=== PATIENT | female | born 1940 | race Caucasian/White ===

== ENCOUNTER 2022-10-14 20:31 | Emergency (ER) | payer MEDICARE, SELFPAY ==
[2022-10-14 20:36] VITALS: BP 146/79; PULSE 59; RESP 18; TEMP 36.7; O2SAT 92; BMI 58.5
--- NOTE | 2022-10-14 21:08 | ED_ITS ---
HPI - General Adult General Chief complaint: Lower Extremity Swelling Stated complaint: chest pain Time Seen by Provider: 10/14/22 20:55 History of Present Illness HPI narrative: Pt points to her sternum and states she has chest pain in between her boobs that won' t go away. She feels it is due to her lymphedema and her legs are more swollen than normal. With concern of mid sternal chest pain beginning now about 21 hours ago around midnight last night. Has not really changed much. Does hurt to have bent forward 82-year-old woman presenting to the emergency department presenting to the emergency department with about 21 hours now chest pain beginning last night around midnight. Has not changed much. She is not really more short of breath. She was worried that maybe she is retaining some fluid as her legs also have gotten more full. Does have chronic lymphedema. Stockings have not been particularly helpful is also use compression boots. Most the treatments just rolled down even above the knee. Her chest discomfort is described as a pressure. Also worse when she pushes on it. Known strain or injury. Daughter notes that it is worse also when she raises arms over her head. Related Data Allergies Allergy/AdvReac Type Severity Reaction Status Date / Time No Known Drug Allergies Allergy Verified 10/14/22 20:39 Review of Systems Status of ROS: Reports: 6 or more systems reviewed and unremarkable except as noted in History and below Exam Narrative: Exam Narrative: Pleasant. Nasopharyngeal congestion. Skin is warm and dry. There is marked combination dependent and pitting edema in the lower legs. A patch of faint erythema and mild calor at the left middle lower leg but not really cellulitic. Not tender here. Lungs diminished breath sounds. Some of it might be due to body habitus. The heart is also distant and appears to be in a regular rhythm. Breathing restricted a little bit I think by chest wall discomfort. Palpation of the chest itself does reveal some reproducible tenderness in the mid sternum. She does say that she has not been worrying this area Const: Vital Signs, click to edit/add: Vital Signs - 24 hr 10/14/22 20:36 Temperature 98.0 F Pulse Rate [Right Pulse Oximeter] 59 L Respiratory Rate 18 Blood Pressure [Ri ght Upper Arm] 146/79 H Pulse Oximetry 92 Oxygen Delivery Me thod Room Air Documenting provider has reviewed patient's vital signs: yes Course Vital Signs Vital signs: Initial Vital Signs Temperature 98.0 F 10/14/22 20:36 Temperature Source Temporal Artery Scan 10/14/22 20:36 Pulse Rate 59 L 10/14/22 20:36 Pulse Rhythm Regular 10/14/22 20:36 Pulse Strength 3+ Normal 10/14/22 20:36 Respiratory Rate 18 10/14/22 20:36 Blood Pressure 146/79 H 10/14/22 20:36 Blood Pressure Mean 101 10/14/22 20:36 Blood Pressure Position Sitting 10/14/22 20:36 Pulse Oximetry 92 10/14/22 20:36 Oxygen Delivery Method Room Air 10/14/22 20:36 Vital Signs Temperature 98.0 F 10/14/22 20:36 Pulse Rate 59 L 10/14/22 20:36 Respiratory Rate 18 10/14/22 20:36 Blood Pressure 146/79 H 10/14/22 20:36 Pulse Oximetry 92 10/14/22 20:36 Oxygen Delivery Method Room Air 10/14/22 20:36 Temperature 98.0 F 10/14/22 20:36 Pulse Rate 59 L 10/14/22 20:36 Respiratory Rate 18 10/14/22 20:36 Blood Pressure 146/79 H 10/14/22 20:36 Pulse Oximetry 92 10/14/22 20:36 Oxygen Delivery Method Room Air 10/14/22 20:36 Medical Decision Making MDM Narrative Medical decision making narrative: Offered evaluation for chest pain. This is not really seem to be cardiac in origin. Does have some component of chest wall pain. She is relieved about my initial opinion and debating whether not she would like workup. Ultimately decides to proceed with this evaluation. Look for pulmonary embolus. Chest x- ray indication of increasing pulmonary edema given her history. Evaluate for ischemic episode. I have reviewed the EKG looks to be normal sinus rate of 60 without ischemic changes. Chest x-ray reviewed by me seems to show some cardiomegaly but clear space without pneumo thorax or pneumomediastinum. The formal over-read was still pending time of patient departure. She was feeling reasonably well and anxious to leave. Labs are reassuring. See patient discharge plan Lab Data Lab results reviewed: Yes I reviewed the patient's lab results Labs: Lab Results 10/14/22 Range/Units 21:30 WBC 7.31 (4.50-11.00) K/uL RBC 4.53 (4.00-5.20) m/uL Hgb 13.2 (12.0-16.0) gm/dL Hct 40.9 (33.0-51.0) % MCV 90 (80-100) fL MCH 29 (26-34) pg MCHC 32 (32-36) gm/dL RDW Coeff of Yakelin 13.1 (11.5-15.5) % Plt Count 168 (140-440) K/uL Neut % (Auto) 76.6 H (42.0-72.0) % Lymph % (Auto) 13.7 L (20-44) % [place] % (Auto) 6.6 (0.0-11.0) % Eos % (Auto) 2.6 (0.0-7.0) % Baso % (Auto) 0.4 (0.0-3.0) % Neut # (Auto) 5.60 (1.7-7.0) K/uL Lymph # (Auto) 1.00 (0.90-2.90) K/uL [place] # (Auto) 0.50 (0.00-0.90) K/UL Eos # (Auto) 0.19 (0.00-0.50) K/uL Baso # (Auto) 0.03 (0.00-0.30) K/uL D-Dimer Quant (PE/DVT) 0.54 H (0.00-0.50) ug/ml Sodium 139 (135-149) mmol/L Potassium 4.1 (3.6-5.1) mmol/L Chloride 100 (96-114) mmol/L Carbon Dioxide 33 H (20-32) mmol/L BUN 16 (7-30) mg/dL Creatinine 0.6 (0.5-1.5) mg/dL Estimated Creat Clear 34.90 Estimated GFR 90 ml/min Glucose 94 (60-115) mg/dL Calcium 9.4 (8.4-10.6) mg/dL Total Bilirubin 0.5 (0.1-1.5) mg/dL Direct Bilirubin 0.1 (0.0-0.5) mg/dL AST 21 (12-35) U/L ALT 15 (4-35) U/L Alkaline Phosphatase 59 (40-150) U/L Troponin I < 0.01 L (0.01-0.04) ng/mL C-Reactive Protein < 0.5 L (0.5-1.0) mg/dL NT-Pro-B Natriuret Pep 59 pg/mL Total Protein 7.3 (6.0-8.3) g/dL Albumin 4.3 (3.3-5.0) g/dL Discharge Plan Discharge Clinical Impression: Chest wall pain, Atypical chest pain Patient Disposition: Home w/ Parent or Adult Condition: Improved Additional Instructions: Might apply ice packs to the area that hurts. Stretch. Acetaminophen and ibuprofen. Follow Up/Referrals: Provider,Not a Local [Primary Care Provider] - Stand Alone Forms: [employer] Info Instructions
--- NOTE | 2022-10-14 21:20 | CRLHL7_ITS ---
For Patients: As a result of the Century Cures Act, medical imaging exams and procedure reports are released immediately into your electronic medical record. You may view this report before your referring provider. If you have questions, please contact your health care provider. INDICATION: Midsternal chest pain TECHNIQUE: Chest 2 views. Permanently recorded images are archived. COMPARISON: None. FINDINGS: Cardiovascular and mediastinum: Prominence of the left paraspinal stripe inferiorly. Mild cardiomegaly. Atherosclerotic thoracic aorta. Lungs and pleural spaces: No focal consolidation. Thin bandlike opacities in the lung bases likely represent scarring versus atelectasis. No pleural effusion or pneumothorax. Bones and soft tissues: Unremarkable for age. IMPRESSION: No evidence of an acute pulmonary process. Atelectasis versus scarring in the lung bases. Prominent left paraspinal stripe inferiorly. This could represent an uncoiled thoracic aorta; however, a hiatal hernia or paraspinal/retroperitoneal mass cannot be excluded in the absence of comparison studies. This can be further evaluated with a chest CT, if clinical concern persists Dictated by Parveen Cabezas MD @ 10/14/2022 11:21:03 PM (Electronically Signed)
[2022-10-14 21:47] LABS: Basophils Absolute Auto 0.03 K/uL (0.00-0.30); Basophils Percent Auto 0.4 % (0.0-3.0); Eosinophils Absolute Auto 0.19 K/uL (0.00-0.50); Eosinophils Percent Auto 2.6 % (0.0-7.0); Hematocrit 40.9 % (33.0-51.0); Hemoglobin* 13.2 gm/dL (12.0-16.0); Immature Granulocytes Abs Auto 0.01 K/uL (0.00-0.30); Immature Granulocytes Pct Auto 0.1 %; Lymphocytes Percent Auto 13.7 % (20-44); Mean Corpuscular HGB Conc 32 gm/dL (32-36); Mean Corpuscular Hemoglobin 29 pg (26-34); Mean Corpuscular Volume 90 fL (80-100); Monocytes Percent Auto 6.6 % (0.0-11.0); Neutrophils Percent Auto 76.6 % (42.0-72.0); Platelet Count* 168 K/uL (140-440); RDW Coefficient of Variation % 13.1 % (11.5-15.5); Red Blood Count 4.53 m/uL (4.00-5.20); White Blood Count* 7.31 K/uL (4.50-11.00)
[2022-10-14 21:48] LABS: Slide Review Reflex No
[2022-10-14 22:48] LABS: Albumin* 4.3 g/dL (3.3-5.0); Chloride* 100 mmol/L (96-114); Sodium* 139 mmol/L (135-149)
[2022-10-14 22:49] LABS: Potassium* 4.1 mmol/L (3.6-5.1)
[2022-10-14 22:51] LABS: Creatinine* 0.6 mg/dL (0.5-1.5); Estimated Glomerular Filt Rate 90 ml/min
[2022-10-14 22:52] LABS: Alanine Aminotransferase* 15 U/L (4-35); Alkaline Phosphatase* 59 U/L (40-150); Aspartate Amino Transferase* 21 U/L (12-35); Bilirubin Direct* 0.1 mg/dL (0.0-0.5); Bilirubin Total* 0.5 mg/dL (0.1-1.5); Blood Urea Nitrogen* 16 mg/dL (7-30); Calcium* 9.4 mg/dL (8.4-10.6); Carbon Dioxide* 33 mmol/L (20-32); Glucose* 94 mg/dL (60-115); Total Protein* 7.3 g/dL (6.0-8.3)
[2022-10-14 22:58] LABS: D Dimer Quantitative* 0.54 ug/ml (0.00-0.50)
[2022-10-14 22:59] LABS: C Reactive Protein* < 0.5 mg/dL (0.5-1.0)
[2022-10-14 23:13] LABS: Troponin I* < 0.01 ng/mL (0.01-0.04)
[2022-10-14 23:23] LABS: NT Pro B Type NatriureticPept* 59 pg/mL
== END 2022-10-14 23:28 | disposition home or self-care (01) ==
PROVIDERS: Emergency Provider Family Medicine
DX: R07.89 Other chest pain (principal)
CPT/HCPCS: 36415; 71046; 80048; 80076; 83880; 84484; 85025; 85379; 86140; 99284

== ENCOUNTER 2024-10-20 16:35 | Observation (INO) | payer MEDICARE, SELFPAY ==
--- OUTSIDE RECORDS SUMMARY | 2020-10-14 19:00 | XMS_ITS | Continuity of Care Document ---
Author Organization [facility] Address [address] [place] [address] Phone Care Team Providers Care Team Coordinator Name Role Phone [facility] Unavailable Unavailable Procedures Procedure Date IMPLANT NEUROELECTRODES IMPLANT NEUROELECTRODES Advance Directives Directive Yes / No Effective Date File Name No Information Encounters Encounter Description Practice Location Reason(s) For Visit Diagnoses Date Provider Providers Copied on Encounter [facility], [address], [place], [place], [id number], [place] tel:[phone] [facility] No Information [facility]. [address], [place], [place], [id number], [place]. tel:[phone] Referring Provider: Analilia Moss, [address], [place], [address] . tel:[phone] Family History Family Member Type Diagnosis Age At Onset No Information Payers Payer name Insurance type Covered democrat ID Authoriza ticynthia(s) [facility] Room[employer] CI [id number] Social History Type Description Quantity Date Captured Comments Sex Female Smoking Status No Information Chief Complaint And Reason For Visit No Information Reason For Referral Reason For Referral No Information History Of Present Illness Encounter Date Complaint History Of Prese nt Illness No Information Functional Status Date Functional Assessmen t No Information Instructions Date Instruction Additional Infor mation No Information Assessments Type Assessment Date No Information Patient Care Teams Name Effective Dates (start - stop) Status Members No Information
--- OUTSIDE RECORDS SUMMARY | 2020-10-14 19:00 | XMS_ITS | Continuity of Care Document ---
Author Organization [facility] Ambulatory [facility] Address [address] [place] [address] Phone Care Team Providers Care Banker Mason Name Role Phone [facility] Unavailable Unavailable Procedures Procedure Date IMPLANT NEUROELECTRODES IMPLANT NEUROELECTRODES Advance Directives Directive Yes / No Effective Date File Name No Information Encounters Encounter Description Practice Location Reason(s) For Visit Diagnoses Date Provider Providers Copied on Encounter [facility], [address], [place], [place], [id number], [place] tel:[phone] [facility] No Information [facility]. [address], [place], [place], [id number], [place]. tel:[phone] Referring Provider: Analilia Moss, [address], [place], [address] . tel:[phone] Family History Family Member Type Diagnosis Age At Onset No Information Payers Payer name Insurance type Covered libertarian ID Authoriza ticynthia(s) [facility] [employer] CI [id number] Social History Type Description Quantity Date Captured [...]
--- OUTSIDE RECORDS SUMMARY | 2022-02-15 09:51 | XMS_ITS | Continuity of Care Document ---
Author Organization [facility] Address [address] [place] [address] Phone Care Team Providers Care Wrapping Checker Name Role Phone Analilia Moss MD Unavailable Unavailable Allergies, Adverse Reactions, Alerts Substance Reaction Status Criticality latex Active No Information Medications Medication Instructions Dosage Effective Dates (start - stop) Status Comments Macrobid 100 mg capsule take 1 capsule by oral route every 12 hours with food 100 MG - Active Myrbetriq 50 mg tablet,extended release take 1 tablet by oral route every day swallowing whole with water. Do not crush, chew and/or divide. 50 MG - Active multivitamin tablet take 1 tablet by oral route every day 1 tablet - Active TOLTERODINE TARTRATE 2MG TABS TAKE ONE TABLET BY MOUTH TWICE A DAY FOR OVERACTIVE BLADDER - Active rosuvastatin 10 mg tablet take 1 tablet by oral route every day 10 MG - Active oxybutynin chloride ER 10 mg tablet,extended release 24 hr take 1 tablet by oral route every day 10 MG - Active metoprolol succinate ER 50 mg tablet,extended release 24 hr take 1 tablet by oral route every day 50 MG - Active lutein 6 mg capsule - Active levothyroxine 75 mcg capsule take 1 capsule by oral route every day 75 MCG - Active fluorouracil 5 % topical cream apply by topical route 2 times every day a sufficient amount to cover the lesions in the affected area(s) 0.00 - Active ferrous sulfate 325 mg (65 mg iron) tablet,delayed release - Active cyclobenzaprine 10 mg tablet take 1 tablet by oral route 2 times every day 10 MG - Active codeine 10 mg-guaifenesin 100 mg/5 mL oral liquid take 10 milliliter by oral route every 4 hours as needed 10.00 milliliter - Active bupropion HCl XL 300 mg 24 hr tablet, extended release take 1 tablet by oral route every day 300 MG - Active aspirin 81 mg chewable tablet chew 1 tablet by oral route every day 81 MG - Active vitamin E 400 unit capsule take 1 capsule by oral route every day 1 capsule - Active Vitamin D3 50 mcg (2,000 unit) capsule - Active Calcium 500 500 mg calcium (1,250 mg) tablet take 1 tablet by oral route 2 times every day 1 tablet - Active Procedures Procedure Date POSTOP FOLLOW-UP VISIT IMPLANT NEUROELECTRODES INSRT/REDO PERPH N GENERATOR FLUOROSCOPE EXAMINATION ANALYZE NEUROSTIM, NO PROG POSTOP FOLLOW-UP VISIT POSTOP FOLLOW-UP VISIT IMPLANT NEUROELECTRODES bilateral OFFICE/OUTPATIENT VISIT, EST Advance Directives Directive Yes / No Effective Date File Name No Information Encounters Encounter Description Practice Location Reason(s) For Visit Diagnoses Date Provider Providers Copied on Encounter [facility], [address] , [place], [place], [id number], [place] tel:[phone] [facility] No Information 2 Thum Analilia Obando. [address] , [place], [place], [id number] , [place]. tel:[phone] [facility], [address] , [place], [place], [id number], [place] tel:[phone] [facility] Urologic concerns (chief complaint) Urge incontinenceOve ractive bladder 1 um Analilia Obando. [address] , [place], [place], [id number] , [place]. tel:[phone] Referring Provider: Analilia Obando um, [address] , [place], [address] . tel:[phone] [facility], [address], [place], [place], [id number], [place] tel:[phone] [facility] No Information 1 Analilia Obando. [address], [place], [place], [id number] , [place]. tel:[phone] Referring Provider: Analiliadidi Obando Thum, [address], [place], [address] . tel:[phone] [facility], [address], [place], [place], [id number], [place] [phone] [facility] No Information Analilia Obando. [address], [place], [place], [id number] , [place]. [phone] [facility], [address], [place], [place], [id number], [place] tel:[phone] [facility] Female urologic symptoms (chief complaint) Overactive bladderStress incontinence (female) (male)Urge incontinenceMix ed incontinence Analilia Obando. [address], [place], [place], [address] , [place]. [phone] Referring Provider: Analilia Topher Thum, [address], [place], [address] . tel:[phone] [facility], [address], [place], [place], [address], [place] tel:[phone] [facility] Overactive bladderMixed incontinence 1 Analilia Obando. [address], [place], [place], [id number] , [place]. tel:[phone] Referring Provider: Analilia Topher Thum, [address], [place], [address] . tel:[phone] OFFICE/OUTPA TIENT VISIT, EST [facility], [address], [place], [place], [id number], [place] tel:[phone] [facility] Urologic concerns (chief complaint) Overactive bladderUrge incontinenceStr ess incontinence (female) (male) 1 Isa Obando. [address], [place], [place], [id number] , [place]. tel:[phone] Referring Provider: Sang Colerishabh, [address], [place], [address] . tel:[phone] [facility], [address], [place], [place], [id number], [place] tel:[phone] [facility] No Information 1 Isa Obando. [address], [place], [place], [address] , [place]. tel:[phone] [facility], [address], [place], [place], [id number], [place] tel:[phone] [facility] No Information 1 Myriam Aguilar. [address], [place], [place], [address] , [place]. tel:[phone] Family History Family Member Type Diagnosis Age At Onset Daughter Problem stroke Brother Problem Heart problems Son Problem Stroke Father Problem Heart problems Mother Problem Heart -quad transplant Payers Payer name Insurance type Covered republican ID Authortae zabala(s) [facility] 7-[employer] bio CI [id number] Social History Type Description Quantity Date Captured Comments Alcohol Use Details Unknown Caffeine Use Details Unknown Tobacco Use Status No Information Smoking Status No Information Sex Female Chief Complaint And Reason For Visit No Information Reason For Referral Reason For Referral No Information History Of Present Illness Encounter Date Complaint History Of Prese nt Illness Urologic concerns Here for follo w up of OAB, CHERI, UUI s/p Insterstim 11/16/20. Has been on program 4 since surgery and working with [facility] reps to adjust settings. Prior to surgery was changing pads 6-7 times per day. Now changing 4-5 times per day. Feels like symptoms are worse overnight than previously. Limiting coffee to one per day. 30 oz water per day. Changed to program 6 at intensity 1.0. Denies pain or signs of infection. Incisions healing well. Female urologic symptoms Here fo r Interstim lead removal. Had a successful trial as defined by >50% improvement in her symptoms subjectively and on bladder diary reviewed today. Interested in proceeding with Interstim. Nocturia down to once nightly. Still leaks. Urologic concerns Here for evalu ation of UI. Wearing Depends with pad over and changing 6-7 times daily. Normally never makes it to the bathroom. Leakage without awareness. Gushes with transition from sitting to standing. Reports diminished bladder sensation. Denies DM or any other neurological condition. Has lymphedema. Denies lasix or diuretic. Is aware of timed voiding but has not been able to follow a schedule. Nocturia is variable, can be once nightly or hourly. Notices coffee irritates her bladder. Currently taking both oxybutynin and tolteradine and is unsure if they are helping. Also failed myrbetriq. Denies FI. Tried botox by outside provider and not sure if it worked. Drinks 2-3 bottles of water per day. 1 coffee. Tubal ligation and denies any other pelvic/abdominal surgeries. Denies XRT. V4 Functional Status Date Functional Assessmen t No Information Instructions Date Instruction Additional Infor hugh Changed her to progr am 6 at 1 mA. Plan for bladder diary. Related to Urge incontinence Plan for full stage Interstim. Likely Bulkamid post op. Related to Overactive bladder Discussed options fo r third line therapy for medication refractory overactive bladder.Offered intravesical Botox and discussed the risks of urinary retention requiring CIC or a temporary indwelling Gomez catheter, incomplete bladder emptying or urinary tract infection. Also offered Interstim with a PNE followed by surgical implant if test phase successful. Risks include surgical revision, device failure and the definitive need for battery replacement. Benefits to both treatment options would include improvement of OAB, without curing it.Plan for PNE then likely Bulkamid. Related to Overactive bladder We discussed the pos sible treatment options for stress incontinence, including pelvic floor physical therapy, incontinence pessary, impressa, bulking agent, fascial sling or mesh sling. I explained that the FDA warning was for prolapse mesh and not for incontinence mesh and that mesh slings remain the gold standard treatment of CHERI recommended by all of the major urologic professional organizations. We reviewed the complications including, but not limited to, urinary tract infection, mesh erosion, organ perforation, pain, damage to nearby organs, bleeding, and urinary retention requiring temporary Gomez placement, CIC, or potentially another surgery. She understands that in particular with retropubic slings, the development of urgency and even urge incontinence is common post operatively. She asked appropriate questions and these were all answered to her satisfaction. Related to Stress incontinence (female) (male) Assessments Type Assessment Date No Information Patient Care Teams Name Effective Dates (start - stop) Status Members No Information
--- OUTSIDE RECORDS SUMMARY | 2022-02-15 09:51 | XMS_ITS | Continuity of Care Document ---
Author Organization [facility] Address [address] [place] [address] [place] [address] Phone Care Team Providers Care Acquisitions Logistics Analyst Name Role Phone Analilia Moss MD Unavailable [...] [facility], [address] , [place], [place], [id number], [place] tel:[phone] [facility] No Information 2 Thum Analilia Obando. [address] , [place], [place], [id number] , [place]. tel:[phone] [facility], [address] , [place], [place], [id number], [place] tel:[phone] [facility] Urologic concerns (chief complaint) Urge incontinenceOve ractive bladder 1 um Analilia Obando. [address] , [place], [place], [id number] , [place]. tel:[phone] Referring Provider: Analilia Obando um, [address] , [place], [address] . tel:[phone] [facility], [address], [place], [place], [address], [place] tel:[phone] [facility] No Information 1 Analilia Oabndo. [address], [place], [place], [id number] , [place]. tel:[phone] Referring Provider: Analiliadidi Obando Thum, [address], [place], [address] . tel:[phone] [facility], [address], [place], [place], [id number], [place] [phone] [facility] No Information Analilia Obando. [address], [place], [place], [id number] , [place]. [phone] [facility], [address], [place], [place], [address], [place] tel:[phone] [facility] Female urologic symptoms (chief complaint) Overactive bladderStress incontinence (female) (male)Urge incontinenceMix ed incontinence Analilia Obando. [address], [place], [place], [address] , [place]. [phone] Referring Provider: Analilia Topher Thum, [address], [place], [address] . tel:[phone] [facility], [address], [place], [place], [address], [place] tel:[phone] [facility] Overactive bladderMixed incontinence 1 Analilia Obando. [address], [place], [place], [address] , [place]. tel:[phone] Referring Provider: Analilia Topher Thum, [address], [place], [address] . tel:[phone] OFFICE/OUTPA TIENT VISIT, EST [facility], [address], [place], [place], [id number], [place] tel:[phone] [facility] Urologic concerns (chief complaint) Overactive bladderUrge incontinenceStr ess incontinence (female) (male) 1 Isa Obando. [address], [place], [place], [address] , [place]. tel:[phone] Referring Provider: Sang Colerishabh, [address], [place], [address] . tel:[phone] [facility], [address], [place], [place], [address], [place] tel:[phone] [facility] No Information 1 Isa Obando. [address], [place], [place], [address] , [place]. tel:[phone] [facility], [address], [place], [place], [address], [place] tel:[phone] [facility] No Information 1 Myriam Aguilar. [address], [place], [place], [address] , [place]. tel:[phone] Family History Family Member Type Diagnosis Age At Onset Daughter Problem stroke Brother Problem Heart problems Son Problem Stroke Father Problem Heart problems Mother Problem Heart -quad transplant Payers Payer name Insurance type Covered republican ID Authortae zabala(s) [facility] [employer] CI [id number] Social History Type Description Quantity Date Captured [...] program 4 since surgery and working with [facility] reps to adjust settings. Prior to surgery [...]
[2024-10-20] VITALS (19 sets, daily range): BP systolic 131–140; BP diastolic 80–88; PULSE 97–112; RESP 12–26; TEMP 36.2–36.4; O2SAT 90–95; BMI 50.8
--- OUTSIDE RECORDS SUMMARY | 2024-10-20 16:54 | XMS_ITS | Data Portability ---
Author Organization [facility], [facility] Address [address] [place] [address] Care Team Providers Care Sanitation Worker Name Role Phone [facility] Primar Care Provider Assessment No assessment recorded. Plan of Treatment Reminders Order Date Submit Date Provider Last Modified By Organization Details Last Modified Time Details Appointments None recorded. Lab urinalysis, dipstick 2023 [facility], [address], [address], [place], [address], 14:20:32 urinalysis, microscopic 2023 [facility], [address], [address], [place], [address], 14:37:05 Referral patient navigator referral 2023 [email or web address] [id number] Not available 04:43:23 Procedures None recorded. Surgeries None recorded. Imaging None recorded. Medication Orders None recorded. Patient TargetsNo targets recorded. Patient Instructions Encounter Date Encounter Id Patient Instructions Last Modified By Organization Details Last Modified Time 02/18/2024 [id number] OAB has interstim placed in 2019? with Dr hood in [place]---changed pogram to 1 today, was on 7 and did not have her device charged. needs to see sonia/yun in 1 mo. -We have reviewed the overactive bladder care pathway and an annotated handout was provided and reviewed with the patient today. -We have discussed that the first line of therapy is to decrease bladder irritants and to decrease fluids prior to bedtime. limiting amounts of coffee, soda, citrus can help along with dietary changes. -We discussed options for Physical Therapy and biofeedback as well as use of medications. There are many medications that are approved for OAB a handout was given that delineates this and reviews all medications (anticholingerics-- risk for dry mouth/constipation most commonly, or a newer medications, Myrbetriq or Gemtesa). I have suggested looking into insurance coverage for medication, as some medications are not initially covered well under some plans. -We did review 3rd line options for their bladder (Posterior Tibial Nerve stimulation (PTNM), Sacral Neuromodulation (Interstim/Axonics) , BOTOX) and others. We discussed that at times an evaluation with urodynamics, a test to study the bladders function, may be required if the above fails as well as cystocopy. [email or web address] Not available 02/18/2024 14:32:13 09/17/2024 [id number] Test each progra m for at least 2 weeks, adjusting amplitude as needed. May remain on a program as long as it is effective. Return as needed for reprogramming. [email or web address] Not available 09/17/2024 15:34:32 Reviewed the use of the smart edi programmer, and provided handout. I also provided a handout on bladder irritants. [email or web address] Not available 09/17/2024 17:19:24 Reason for Referral Referring Physician: Sharita morse, Urology, Encounter Date: 02/18/2024 Results Created Date Observation Date Name Description Value Unit Range Abnormal Flag Note LastModifiedBy Organization Detail LastModifiedTime 02/18/2002/18/2024 UA WITHO UT MICRO - CS URISC AN blood - uriscan NEGATI VE negati ve Not Available [facility] [address], [place], [address], 02/18/2024 14:20:32 02/18/2002/18/2024 UA WITHO UT MICRO - CS URISC AN bilirubin - uriscan NEGATI VE mg/dL negati ve Not Available [facility] [address], [place], [address], 02/18/2024 14:20:32 02/18/2002/18/2024 UA WITHO UT MICRO - CS URISC AN urobilinogen - uriscan NORMAL mg/dL normal Not Available [facility] [address], [place], [address], 02/18/2024 14:20:32 02/18/2002/18/2024 UA WITHO UT MICRO - CS URISC AN ketones - uriscan NEGATI VE mg/dL negati ve Not Available [facility] [address] [place] [address] [address], [place], [address], 02/18/2024 14:20:32 02/18/2002/18/2024 UA WITHO UT MICRO - CS URISC AN protein - uriscan NEGATI VE mg/dL negati ve Not Available [facility] [address] [place] [address] [address], [place], [address], 02/18/2024 14:20:32 02/18/20 24 02/18/2024 UA WITHO UT MICRO - CS URISC AN nitrites - uriscan POSITI VE negati ve abnormal Not Available [facility] [address] [place] [address] [address], [place], [address], 02/18/2024 14:20:32 02/18/2002/18/2024 UA WITHO UT MICRO - CS URISC AN glucose - uriscan NEGATI VE mg/dL negati ve Not Available [facility] [address] [place] [address] [address], [place], [address], 02/18/2024 14:20:32 02/18/20 24 02/18/2024 UA WITHO UT MICRO - CS URISC AN pH - uriscan 8.00 5.00-9 .00 Not Available [facility] [address] [place] [address] [address], [place], [address], 02/18/2024 14:20:32 02/18/20 24 02/18/2024 UA WITHO UT MICRO - CS URISC AN sp. gravity - uriscan <=1.01 1.01-1 .03 Not Available [facility] [address], [place], [address], 02/18/2024 14:20:32 02/18/2002/18/2024 UA WITHO UT MICRO - CS URISC AN leukocytes - uriscan NEGATI VE negati ve Not Available [facility] [address], [place], [address], 02/18/2024 14:20:32 02/18/2002/18/2024 UA WITHO UT MICRO - CS URISC AN color - uriscan YELLOW lt. yellow ;yello w Not Available [facility] [address] [place] [address] [address], [place], [address], 02/18/2024 14:20:32 02/18/20 24 02/18/2024 UA WITHO UT MICRO - CS URISC AN clarity - uriscan CLEAR clear Not Available [facility] [address], [place], [address], 02/18/2024 14:20:32 02/18/2002/18/2024 UA WITHO UT MICRO - CS URISC AN total urine volume (mL) 20 /mL ----- ----- ----- ----- ----- ----- ----- ----- ----- ----- ----- ----- ----- ----- ---- *Plecristina jeffery note the follo wing minim um quant ities for addit ional urine testi ng: - Atypi cals: 3 mL - Cytol ogy: 20 mL - GC/CH : 2 mL - FISH: 30 mL - Atypi cals w/ GC/CH : 5 mL - Cytol ogy PLUS FISH: 50 mL - Urine Cultu re: 3 mL ----- ----- ----- ----- ----- ----- ----- ----- ----- ----- ----- ----- ----- ----- ---- This lab resul t is being provi ded to you and your provi roberto at the same time in compl iance with the u ry Cures Act. Your provi roberto may not have had time to revie w and make recom menda tions based on the resul t. Artis fernandez allow up to one week for provi roberto revie w. Not Available [facility] [address], [place], [address], 02/18/2024 14:20:32 02/18/2002/18/2024 UA MICRO SCOPI C U-WBC 5 - 10 [hpf] 0 - 2 abnormal Not Available [facility] [address], [place], [address], 02/18/2024 14:20:34 02/18/2002/18/2024 UA MICRO SCOPI C U-RBC 0 - 2 [hpf] 0 - 2 Not Available [facility] [address], [place], [address], 02/18/2024 14:20:34 02/18/2002/18/2024 UA MICRO SCOPI C bacteria MANY [hpf] none;r are abnormal Not Available [facility] [address], [place], [address], 02/18/2024 14:20:34 02/18/2002/18/2024 UA MICRO SCOPI C squamous epi SMALL /lpf negati ve,sma ll This lab resul t is being provi ded to you and your provi roberto at the same time in compl iance with the Centu ry Cures Act. Your provi roberto may not have had time to revie w and make recom menda tions based on the resul t. Pleas e allow up to one week for provi roberto revie w. Not Available [facility] [address], [place], [address], 02/18/2024 14:20:34 Result Notes None recorded. Procedures Surgical History Date Name Laterality Status Provider Name and Address Organization Details Recorded Time 09/18/19 Sacral Stimulator Reprogramming completed Sonia Parikh [facility] 09/17/2024 17:39:39 02/18/20 Sacral neuromodulation w/o reprogramming completed Sharita Hyman MD [address] [place] [address],[address], [address], [facility] 02/18/2024 14:32:43 02/18/20 Past Data Reviewed completed Sharita Hyman MD [address] [place] [address],[facility] [address], [address], [facility] 02/18/2024 08:47:26 02/18/20 24 In and Out Catheterization- female completed Sharita Hyman MD [address] [place] [address],[facility] [address], [address], [facility] 02/18/2024 14:31:36 Imaging Results None recorded. Procedure Notes None recorded. Medical Equipment None Reported. Allergies Allergen ID Allergen Name Allergen Category Reaction Reaction Severity Criticality Documentation Date Start Date Code Code System Note Provider Name and Address Organization Details Recorded Time 023935 adhesive tape environme nt,medica tion Not available Not available Not available 02/18/2024 [id number] Sapna combs, [facility] 14:00:54 Medications Name Sig Start Date Stop Date Status Note LastModified by Organization Details LastModified Time ipratropium 0.5 mg-albutero l 3 mg (2.5 mg base)/3 mL nebulizatio n soln INHALE 1 VIAL VIA NEBULIZER TWICE A DAY active Not Available Not Available No t Available ketoconazol e 2 % shampoo APPLY LATHER ONTO A DAMP SCALP, LEAVE ON FOR 5-10 MINS THEN RINSE WITH WATER 3 TIMES WEEKLY active Not Available Not Available No t Available metoprolol succinate ER 50 mg tablet,exte nded release 24 hr TAKE 1 TABLET BY MOUTH 1 TIME A DAY active Not Available Not Available No t Available Calcium Antacid 200 mg (as calcium carbonate 500 mg) chewable tablet CHEW AND SWALLOW 2 TABLETS (1000MG) BY MOUTH TWICE DAILY NEEDED active Not Available Not Available No t Available aspirin 81 mg tablet,nathan yed release TAKE 1 TABLET BY MOUTH DAILY WITH A MEAL active Not Available Not Available No t Available acetaminoph en 500 mg tablet TAKE 1 TAB BY MOUTH TWICE DAILY active Not Available Not Available No t Available levothyroxi ne 75 mcg tablet TAKE 1 TABLET BY MOUTH DAILY BEFORE BREAKFAST DX HYPOTHYRO IDISM active Not Available Not Available No t Available cephalexin 500 mg capsule TAKE 1 CAPSULE BY MOUTH THREE TIMES DAILY FOR 7 DAYS. 02/17 completed Not Available Not Available Not Available oseltamivir 75 mg capsule TAKE 1 CAP BY MOUTH TWICE A DAY FOR 5 DAYS active Not Available Not Available No t Available gabapentin 300 mg capsule TAKE 1 CAPSULE BY MOUTH AT BEDTIME active Not Available Not Available No t Available omeprazole 20 mg capsule,del ayed release TAKE 1 CAPSULE BY MOUTH EVERY DAY BEFORE A MEAL active Not Available Not Available No t Available hydroxyzine HCl 25 mg tablet TAKE 1 TABLET BY MOUTH EVERY 6 HOURS NEEDED FOR ITCHING active Not Available Not Available No t Available furosemide 20 mg tablet TAKE 1 TABLET BY MOUTH 1 TIME A DAY active Not Available Not Available No t Available hydrocortis one 2.5 % topical ointment APPLY TO AFFECTED AREAS ON BILATERAL ARMS, LEGS AND CHEST TWICE DAILY FOR 10 DAYS 02/17 completed Not Available Not Available Not Available doxycycline hyclate 100 mg tablet 02/17 completed Not Available Not Available Not Available Oyster Shell Calcium-500 500 mg (as carbonate 1,250 mg) tablet TAKE 2 TABLETS (1000MG) BY MOUTH DAILY active Not Available Not Available No t Available rosuvastati n 10 mg tablet TAKE 1 TAB BY MOUTH AT BEDTIME active Not Available Not Available No t Available lutein 20 mg capsule TAKE 1 SOFTGEL BY MOUTH DAILY active Not Available Not Available No t Available melatonin active Not Available Not Anali ilable Not Available budesonide- formoterol HFA 160 mcg-4.5 mcg/actuati on aerosol inhaler INHALE 2 PUFFS INTO THE LUNGS TWICE DAILY RINSE MOUTH AFTER USE DX COPD EXACERBAT ION active Not Available Not Available No t Available Symbicort active Not Available Not Anali ilable Not Available FeroSul 325 mg (65 mg iron) tablet TAKE 1 TABLET BY MOUTH TWICE DAILY WITH MEALS active Not Available Not Available No t Available Vitamin D3 50 mcg (2,000 unit) capsule TAKE 1 SOFTGEL BY MOUTH DAILY active Not Available Not Available No t Available lutein 20 mg tablet Take by oral route. active Not Available Not Available No t Available mirabegron ER 25 mg tablet,exte nded release 24 hr TAKE 1 TABLET BY MOUTH 1 TIME A DAY active Not Available Not Available No t Available Centrum Silver Women 8 mg iron-400 mcg-50 mcg tablet TAKE 1 TABLET BY MOUTH DAILY active Not Available Not Available No t Available Vitals Date Recorded Body height Body mass index (BMI) Body weight Provider Name and Address Organization Details Last Updated DateTime 09/17/2024 157.48 cm 51.9 kg/m2 509997.[address] [facility] 09/17/2024 14:54:04 Date Recorded Body height Body mass index (BMI) Body weight Provider Name and Address Organization Details Last Updated DateTime 02/18/2024 157.48 cm 47.6 kg/m2 897350.[email or web address] [facility] 02/18/2024 14:00:16 Social History Question Answer Notes LastModified by [employer] Details LastModified Time Tobacco Smoking Status Former Smoker Sonia Parikh [facility] 09/17/2024 15:01:56 Do You Have An Advance Directive? Yes [email or web address] Information not available 09/17/2024 What Is Your Level Of Caffeine Consumption? Occasional 3 Cups Coffee Daily, Occasionally Soda [email or web address] Information not available 09/17/2024 When Did You Quit Smoking? 1-5yearssince lastcigarette [email or web address] Information not available 09/17/2024 Do You Have A Medical Power Of Shift Commander? Yes Son Information not available 09/17/2024 What Was The Date Of Your Most Recent Tobacco Screening? 09/17/2024 [email or web address] Information not available 09/17/2024 Has Tobacco Cessation Counseling Been Provided? No Information not available 02/18/2024 Sex: Unknown Functional Status Question Answer Note LastModified by [employer] Details LastModified Time Do you use any illicit or recreational drugs? No Information not available 02/18/2024 Do you or have you ever used any other forms of tobacco or nicotine? No Information not available 02/18/2024 What is your level of alcohol consumption? Occasional 1-2 drinks 1 time per month [email or web address] Information not available 09/17/2024 Mental Status None recorded. Family History Nothing Reported. Medical History No medical history recorded. Gynecological HistoryNo gynecological history recorded. Obstetrics History GPAL:G 0 P 0 0 0 0 Immunizations Vaccine Type Date Status Note Provider Nam e and Address Organization Details Recorded Time Influenza, split virus, trivalent, preservative 4 completed Not Available [facility] 09/17/2024 14:36:54 Influenza, split virus, trivalent, preservative 5 completed Not Available [facility] 09/17/2024 14:36:54 Influenza, split virus, trivalent, preservative 6 completed Not Available [facility] 09/17/2024 14:36:54 Influenza, split virus, trivalent, preservative 7 completed Not Available [facility] 09/17/2024 14:36:54 Influenza, split virus, trivalent, PF 8 completed Not Available [facility] 09/17/2024 14:36:54 Influenza, split virus, trivalent, PF 9 completed Not Available [facility] 09/17/2024 14:36:54 Influenza, split virus, trivalent, PF 0 completed Not Available [facility] 09/17/2024 14:36:54 Influenza, high-dose, trivalent, PF 2 completed Not Available [facility] 09/17/2024 14:36:54 Influenza, high-dose, trivalent, PF 5 completed Not Available [facility] 09/17/2024 14:36:54 Pneumococcal conjugate PCV 13 6 completed Not Available [facility] 09/17/2024 14:36:54 Influenza, high-dose, trivalent, PF 6 completed Not Available [facility] 09/17/2024 14:36:54 Tdap 7 completed Not Available [facility] 09/17/2024 14:36:54 Influenza, split virus, quadrivalent, preservative 8 completed Not Available [facility] 09/17/2024 14:36:54 Influenza, split virus, quadrivalent, PF 0 completed Not Available [facility] 09/17/2024 14:36:54 Influenza, high-dose, quadrivalent, PF 0 completed Not Available [facility] 09/17/2024 14:36:54 COVID-19, mRNA, LNP-S, PF, 30 mcg/0.3 mL dose 1 completed Not Available [facility] 09/17/2024 14:36:54 COVID-19, mRNA, LNP-S, PF, 30 mcg/0.3 mL dose 1 completed Not Available [facility] 09/17/2024 14:36:54 COVID-19, mRNA, LNP-S, PF, 30 mcg/0.3 mL dose 1 completed Not Available [facility] 09/17/2024 14:36:54 Influenza, high-dose, quadrivalent, PF 1 completed Not Available [facility] 09/17/2024 14:36:54 Novel [id number], all formulations 0 completed Not Available [facility] 09/17/2024 14:36:54 Influenza, split virus, trivalent, preservative 3 completed Not Available [facility] 09/17/2024 14:36:54 Influenza, high-dose, trivalent, PF 4 completed Not Available [facility] 09/17/2024 14:36:54 Influenza, high-dose, trivalent, PF 9 completed Not Available [facility] 09/17/2024 14:36:54 pneumococcal polysaccharide PPV23 7 completed Not Available [facility] 09/17/2024 14:36:54 Td (adult), 5 Lf tetanus toxoid, preservative free, adsorbed 7 completed Not Available [facility] 09/17/2024 14:36:54 zoster live 3 completed Not Available [facility] 09/17/2024 14:36:54 COVID-19, mRNA, LNP-S, PF, 100 mcg/0.5mL dose or 50 mcg/0.25mL dose 2 completed Not Available [facility] 09/17/2024 14:36:54 Influenza, high-dose, quadrivalent, PF 2 completed Not Available [facility] 09/17/2024 14:36:54 COVID-19, mRNA, LNP-S, bivalent, PF, 30 mcg/0.3 mL dose 3 completed Not Available [facility] 09/17/2024 14:36:54 Influenza, adjuvanted, quadrivalent, PF 3 completed Not Available [facility] 09/17/2024 14:36:54 COVID-19, mRNA, LNP-S, PF, 50 mcg/0.5 mL 3 completed Not Available [facility] 09/17/2024 14:36:54 zoster recombinant 4 completed Not Available [facility] 09/17/2024 14:36:54 Influenza, adjuvanted, trivalent, PF 4 completed Not Available [facility] 09/17/2024 14:36:54 COVID-19, mRNA, LNP-S, PF, jarred-sucrose, 30 mcg/0.3 mL 4 completed Not Available [facility] 09/17/2024 14:36:54 zoster recombinant 4 completed Not Available [facility] 09/17/2024 14:36:54 RSV, bivalent, protein subunit RSVpreF, diluent reconstituted, 0.5 mL, PF 5 completed Not Available [facility] 09/17/2024 14:36:54 Past Encounters Encounter ID Performer Location Encounter Start Date Encounter Closed Date Diagnosis/Indication Diagnosis SNOMED-CT Code Diagnosis ICD10 Code Diagnosis Note [id number] Sharita Hyman MD [facility] [address] [address] 02/18/2024 13:49:17 02/18/2024 14:36:32 Overactive urinary bladder 973556736 N32.81 new Urge incon tinence of urine 01108237 N39.41 new [id number] Sharita Hyman MD [facility] [address] [place] [address] 09/17/2024 14:34:02 09/26/2024 16:19:34 Overactive urinary bladder 036373076 N32.81 new Health Concerns Section Related Observation LastModified by Organization Detai ls LastModified Time None Recorded Concern Status LastModified by Organization Details LastModified Time None Recorded Advance Directives Directive Y: Payers Insurance Date Sequence Insurance Name Policy Number Policy Mahajan Covered Member ID Mahajan Member ID Guarantor Name 09/26/2024 1 MEDICA - DUAL ELIGIBLE (MEDICARE REPLACEMENT/ ADVANTAGE - HMO) [id number] Tiffanie French [id number] Tiffanie Villaiper 02/18/2024 2 [place] Tiffanie French [id number] Tiffanie French Notes Date Note Type Note Provider Name and Address Organization Details Recorded Time 02/18/2024 text/html 83 yo F wit h hx of incontinence for over 4-5 yearsmorbid obesity, VASU, lymphedema, UUI HTN with hx of heart failure GERDhas uterus no vb or discharge Cr 0.68 8-17-24 DF q 1-2 hrsenuresis nocturia 1changes depends with a pad 5-6 times per day has InterStim, was placed in [facility], near [place], [place]. --->Dr Analilia Hood. it is not working well for her does not recall any meds prior to this Sharita Hyman MD [address] [place] [address],[address], [place], [address], [facility] 02/18/2024 14:34:24 09/17/2024 text/html Current program: 1, 2, 3, 4, 5, 6, 7 , A, B, C Current amplitude: ____ PVR: ____ cc. Patient complaints: Is the interstim turned on? Y/N Is the stimulus uncomfortable? Y/N Does the patient have UTI? Y/N Any changes to diet? Y/N Has the patient been constipated? Y/N Any chnages in meds? Y/N Any changes in other medical conditions? Y/N Recent fall, surgery, or procedures? Y/N Impedance checked Batery checked Amplitude limit changed Amp chnaged Program changed Pulse width changed Rate chaanged [facility] 17:42:14 OBGyn Episode No OBEpisode recorded.
--- OUTSIDE RECORDS SUMMARY | 2024-10-20 16:54 | XMS_ITS | Continuity of Care Document ---
Author Organization [facility], [facility] Address [address] [place] [address] Care Team Providers Care Internet Marketing Director Name Role Phone [facility] Primar y Care Provider Assessment No assessment recorded. Plan of Treatment Reminders Order Date Submit Date Provider Last Modified By Organization Details Last Modified Time Details Appointments None record ed. Lab None record ed. Referral None record ed. Procedures None record ed. Surgeries None record ed. Imaging None record ed. Medication Orders None record ed. Patient TargetsNo targets recorded. Patient Instructions Encounter Date Encounter Id Patient Instructions Last Modified By Organization Details Last Modified Time 09/17/2024 [id number] Test each progra m for at least 2 weeks, adjusting amplitude as needed. May remain on a program as long as it is effective. Return as needed for reprogramming. [email or web address] Not available 09/17/2024 15:34:32 Reviewed the use of the smart senior mainframe programmer analyst, and provided handout. I also provided a handout on bladder irritants. [email or web address] Not available 09/17/2024 17:19:24 Reason for Referral None Reported. Procedures Surgical History Date Name Laterality Status Provider Name and Address Organization Details Recorded Time 09/18/19 Sacral Stimulator Reprogramming completed Yesenia Parikh [facility] 09/17/2024 17:39:39 02/18/20 24 Sacral neuromodulation w/o reprogramming completed Sharita Hyman MD [address] [place] [address],[address] [place] [address], [phone], [facility] 02/18/2024 14:32:43 02/18/20 24 Past Data Reviewed completed Sharita Hyman MD [address] [place] [address],[address], [phone], [facility] 02/18/2024 08:47:26 02/18/20 24 In and Out Catheterization- female completed Sharita Hyman MD [address], [place], [address], [facility] 02/18/2024 14:31:36 Imaging Results None recorded. Procedure Notes None recorded. Medical Equipment None Reported. Allergies Allergen ID Allergen Name Allergen Category Reaction Reaction Severity Criticality Documentation Date Start Date Code Code System Note Provider Name and Address Organization Details Recorded Time 979645 adhesive tape environme nt,medica tion Not available Not available Not available 02/18/2024 [id number] UNK Sapna Moreno [facility], [facility] 14:00:54 Medications Name Sig Start Date [...] Updated DateTime 09/17/2024 157.48 cm 51.9 kg/m2 312017.23 g Yesenia Parikh [facility] 09/17/2024 14:54:04 Social History Question Answer Notes LastModified by Organizat ion Details LastModified Time Tobacco Smoking Status Former Smoker Yesenia Parikh [facility] 09/17/2024 15:01:56 Do You Have An Advance Directive? Yes [email or web address] Information not available 09/17/2024 What Is Your Level Of Caffeine Consumption? Occasional 3 Cups Coffee Daily, Occasionally Soda [email or web address] Information not available 09/17/2024 When Did You Quit Smoking? 1-5yearssince lastcigarette Information not available 09/17/2024 Do You Have A Medical Power Of Intelligence Officer Basic? Yes Son Information not available 09/17/2024 What Was The Date Of Your Most Recent Tobacco Screening? 09/17/2024 [email or web address] Information not available 09/17/2024 Has Tobacco Cessation Counseling Been Provided? No Information not available 02/18/2024 Sex: Unknown Functional Status Question Answer Note LastModified by [employer] Details LastModified Time Do you use any illicit or recreational drugs? No Information not available 02/18/2024 Do you or have you ever used any other forms of tobacco or nicotine? No Information not available 02/18/2024 What is your level of alcohol consumption? Occasional 1-2 drinks 1 time per month Information not available 09/17/2024 Mental Status None recorded. Family History Nothing Reported. Medical History No medical history recorded. Gynecological HistoryNo gynecological history recorded. Obstetrics History GPAL:G 0 P 0 0 0 0 Immunizations Vaccine Type Date Status Note Provider Nam e and Address Organization Details Recorded Time Influenza, split virus, trivalent, preservative 4 completed Not Available [facility] 09/17/2024 14:36:54 Influenza, split virus, trivalent, preservative 5 completed Not Available [facility] 09/17/2024 14:36:54 Influenza, split virus, trivalent, preservative 6 completed Not Available [facility] 09/17/2024 14:36:54 Influenza, split virus, trivalent, preservative 7 completed Not Available [facility] 09/17/2024 14:36:54 Influenza, split virus, trivalent, PF 8 completed Not Available [facility] 09/17/2024 14:36:54 Influenza, split virus, trivalent, PF 9 completed Not Available [facility] 09/17/2024 14:36:54 Influenza, split virus, trivalent, PF 0 completed Not Available [facility] 09/17/2024 14:36:54 Influenza, high-dose, trivalent, PF 2 completed Not Available [facility] 09/17/2024 14:36:54 Influenza, high-dose, trivalent, PF 5 completed Not Available [facility] 09/17/2024 14:36:54 Pneumococcal conjugate PCV 13 6 completed Not Available [facility] 09/17/2024 14:36:54 Influenza, high-dose, trivalent, PF 6 completed Not Available Counts include 234 beds at the [facility] 09/17/2024 14:36:54 Tdap 7 completed Not Available [facility] 09/17/2024 14:36:54 Influenza, split virus, quadrivalent, preservative 8 completed Not Available [facility] 09/17/2024 14:36:54 Influenza, split virus, quadrivalent, PF 0 completed Not Available [facility] 09/17/2024 14:36:54 Influenza, high-dose, quadrivalent, PF 0 completed Not Available [facility] 09/17/2024 14:36:54 COVID-19, mRNA, LNP-S, PF, 30 mcg/0.3 mL dose 1 completed Not Available [facility] 09/17/2024 14:36:54 COVID-19, mRNA, LNP-S, PF, 30 mcg/0.3 mL dose 1 completed Not Available [facility] 09/17/2024 14:36:54 COVID-19, mRNA, LNP-S, PF, 30 mcg/0.3 mL dose 1 completed Not Available [facility] 09/17/2024 14:36:54 Influenza, high-dose, quadrivalent, PF 1 completed Not Available [facility] 09/17/2024 14:36:54 Novel [id number], all formulations 0 completed Not Available [facility] 09/17/2024 14:36:54 Influenza, split virus, trivalent, preservative 3 completed Not Available [facility] 09/17/2024 14:36:54 Influenza, high-dose, trivalent, PF 4 completed Not Available [facility] 09/17/2024 14:36:54 Influenza, high-dose, trivalent, PF 9 completed Not Available [facility] 09/17/2024 14:36:54 pneumococcal polysaccharide PPV23 7 completed Not Available [facility] 09/17/2024 14:36:54 Td (adult), 5 Lf tetanus toxoid, preservative free, adsorbed 7 completed Not Available [facility] 09/17/2024 14:36:54 zoster live 3 completed Not Available [facility] 09/17/2024 14:36:54 COVID-19, mRNA, LNP-S, PF, 100 mcg/0.5mL dose or 50 mcg/0.25mL dose 2 completed Not Available [facility] 09/17/2024 14:36:54 Influenza, high-dose, quadrivalent, PF 2 completed Not Available [facility] 09/17/2024 14:36:54 COVID-19, mRNA, LNP-S, bivalent, PF, 30 mcg/0.3 mL dose 3 completed Not Available [facility] 09/17/2024 14:36:54 Influenza, adjuvanted, quadrivalent, PF 3 completed Not Available [facility] 09/17/2024 14:36:54 COVID-19, mRNA, LNP-S, PF, 50 mcg/0.5 mL 3 completed Not Available [facility] 09/17/2024 14:36:54 zoster recombinant 4 completed Not Available [facility] 09/17/2024 14:36:54 Influenza, adjuvanted, trivalent, PF 4 completed Not Available [facility] 09/17/2024 14:36:54 COVID-19, mRNA, LNP-S, PF, jarred-sucrose, 30 mcg/0.3 mL 4 completed Not Available Counts include 234 beds at the [facility] 09/17/2024 14:36:54 zoster recombinant 4 completed Not Available Counts include 234 beds at the [facility] 09/17/2024 14:36:54 RSV, bivalent, protein subunit RSVpreF, diluent reconstituted, 0.5 mL, PF 5 completed Not Available Counts include 234 beds at the [facility] 09/17/2024 14:36:54 Past Encounters Encounter ID Performer Location Encounter Start Date Encounter Closed Date Diagnosis/Indication Diagnosis SNOMED-CT Code Diagnosis ICD10 Code Diagnosis Note [id number] Sharita Hyman MD [facility] [address] [phone] 09/17/2024 14:34:02 09/26/2024 16:19:34 Overactive urinary bladder 733530411 N32.81 new Health Concerns Section Related Observation LastModified by Organization Detai ls LastModified Time None Recorded Concern Status LastModified by Organization Details LastModified Time None Recorded Payers Encounter Date Sequence Insurance Name Policy Number Policy Mahajan Covered Member ID Mahajan Member ID Guarantor Name 09/17/2024 1 MEDICA - DUAL ELIGIBLE (MEDICARE REPLACEMENT/ ADVANTAGE - HMO) [id number] Tiffanie French [id number] Tiffanie French Notes Date Note Type Note Provider Name and Address Organization Details Recorded Time 09/17/2024 text/html Current program: 1, 2, 3, [...] Pulse width changed Rate chaanged [facility] 09/17/2024 17:42:14 OBGyn Episode No OBEpisode recorded.
--- OUTSIDE RECORDS SUMMARY | 2024-10-20 16:54 | XMS_ITS | Clinical Summary ---
Author Organization [facility] Address [address] [place] [address] Care Team Providers Care Leak Operator Paraffin Plant Name Role Phone [facility] Primary Care Provider Unavailabl e Allergies Active Allergy Reactions Criticality Noted Date Comments Adhesive Tape-Silicones Rash 12/21/2021 Medications lutein 20 mg capsule Take 1 Capsule (20 mg) by mouth once daily. 0 2 Active cholecalciferol (Vitamin D-3) 2,000 unit capsule Take 1 Capsule (2,000 units) by mouth once daily. 0 2 Active bqsqmfmc-mve-rfxe -FA-lutein (Centrum Silver Women) 8 mg iron-400 mcg-300 mcg tab Take 1 Tablet by mouth once daily. 0 2 Active melatonin 3 mg tablet 3 mg at bedtime if needed for Sleep. as needed Active levothyroxine (SYNTHROID) 75 mcg tabletIndications :Hypothyroidism (acquired) Take 1 Tablet (75 mcg) by mouth before breakfast. 100 Tablet 3 3 Active aspirin (ECOTRIN) 81 mg enteric coated tabletIndications :Essential hypertension Take 1 Tablet (81 mg) by mouth once daily with a meal. 100 Tablet 3 3 Active ferrous sulfate, 65 mg elemental, tabletIndications :Iron deficiency anemia, unspecified iron deficiency anemia type Take 1 Tablet (325 mg) by mouth two times daily with meals. 180 Tablet 3 3 Active metoprolol succinate (TOPROL XL) 50 mg sustained-release tabletIndications :Essential hypertension Take 1 Tablet (50 mg) by mouth once daily. 90 Tablet 2 4 Active rosuvastatin (CRESTOR) 10 mg tabletIndications :Dyslipidemia Take 1 Tablet (10 mg) by mouth at bedtime. 100 Tablet 2 4 Active calcium carbonate (CALCIUM 500 ORAL) Take 1,000 mg by mouth once daily. Active furosemide (LASIX) 20 mg tablet Take 20 mg by mouth once daily in the morning. 4 Active hydrOXYzine HCL (ATARAX) 25 mg tablet Take 25 mg by mouth every 6 hours if needed. Active albuterol-ipratro pium (DUONEB) (2.5-0.5 mg) in 3 mL NEBULIZATION solution Inhale 1 Neb via a nebulizer two times daily. 4 Active mirabegron EXTENDED-release (MYRBETRIQ) 25 mg tablet Take 25 mg by mouth once daily. 4 Active triamcinolone (ARISTOCORT; KENALOG) 0.1 % creamIndications: Rash Apply thin layer to affected areas on body 1-2 times a day as needed. Do not use on face/neck/ears /underarms/john in. Do not use more than 3 weeks. 80 g 5 Active ketoconazole 2% shampoo (NIZORAL) 2 % shampooIndication s:Seborrheic dermatitis lather onto a damp scalp, leave on for 5-10 minutes, then rinse out well with water. Use three times per week during flares and weekly for maintenance. 120 mL 11 5 Active Active Problems Problem Noted Date Diagnosed Date Skin cancer 04/29/2024 Overview (06/16/2024): 04/24/24: Midline forehead, BCC. Mohs done 06/16/[address] Strauss Hypertensive heart disease with heart failure Overview (12/08/2023): Documented on 09/12/2021 Hypoxia 12/08/2023 GERD (gastroesophageal reflux disease) Urge urinary incontinence 07/19/2023 Obesity, morbid 12/21/2021 VASU (obstructive sleep apnea) 12/21/2021 Iron deficiency anemia 12/21/2021 Dyslipidemia 12/21/2021 Hypothyroidism (acquired) 12/21/2021 Lymphedema 12/21/2021 Resolved Problems Problem Noted Date Diagnosed Date Resolved Date Chronic obstructive pulmonar y disease, unspecified 12/08/2023 12/19/2023 Overview (12/08/2023): Documented on 07/22/2021 Hypoxic respiratory failure 12/08/2023 12/08/2023 Chronic bronchitis, unspecif ied chronic bronchitis type 01/11/2023 08/26/2023 Recurrent major depressive d isorder, in partial remission 12/21/2021 09/13/2023 Encounters Date Type Department Care Team Description 09/03/2024 [place] [facility] [place] [id number] [address] Yuridia Hairston DO Form (Physician order) from Last 3 Months Immunizations Immunization Administration Dates Next Due Influenza A (H1N1), Inactivated 05/21/2009 Influenza, High-dose Quadriv alent Inactivated 02/02/2022,02/10/2021,04/12/2020 Influenza, IIV3 (Age >=3 years) 01/23/20 13,02/19/2007,03/02/2006,2004,04/11/2004 Influenza, Inactivated AIIV4 (Age 65+ Years) Preserv Free 01/11/2023 Pneumococcal Poly,23-Valent (Pneumovax) 12/11/2006 Pneumococcal conj 13-Valent (Prevnar 13) 06/25/2015 Td, Preservative Free (age > = 7 Years) 12/11/2006 Tdap 08/14/2016 Zoster (Zostavax-ZVL, live) 02/10/2013 Family History Medical History Relation Name Comments Coronary artery disease Brother Multiple sclerosis Daughter Stroke Daughter Coronary artery disease Father Coronary artery disease Mother Multiple sclerosis Son Stroke Son Relation Name Status Comments Brother Daughter Alive Father Mother Son Alive Social History Tobacco Use Types Packs/Day Years Used Date Smoking Tobacco: Former Cigarettes S tarted: 08/29/2021 Passive Smoke Exposure: Never Smokeless Tobacco: Never Tobacco Cessation:Counseling Given: Not Answered Alcohol Use Standard Drinks/Week Comments Not Currently 0 (1 standard drink = 0.6 oz pur e alcohol) PHQ-2 Answer Date Recorded PHQ-2 TOTAL SCORE 0 01/11/2023 Interpersonal Safety Answer Date Record ed Are you being hit, kicked, p ushed or yelled at (see row info)? No 12/08/2023 Interpersonal Safety Abuse 12 - 18 Not on file 12/08/2023 Interpersonal Safety Ambulatory Vulnerability No t on file 12/08/2023 Comments No Sex and Gender Information Value Date Recorded Sex Assigned at Not on file Legal Sex Female 11:09 AM CDT Gender Identity Not on file Sexual Orientation Not on file Obstetrics History Para Term AB IAB SAB Ectopic Multiple Livin g Live Births 4 4 4 4 4 Date Outcome GA Total Labor Labor//3rd Weight Sex Type Anes PTL Lorin A1 A5 Name Clin 1962 Term M Vag Living 1965 Term F Vag Living 1977 Term M Vag Living 1978 Term M Vag Living Last Filed Vital Signs Vital Sign Reading Time Taken Comments Blood Pressure 156/77 12/08/2023 5:26 PM CDT Pulse 72 12/08/2023 5:26 PM CDT Temperature 36.6 C (97.9 F) 12/08/2023 5:26 PM CDT Respiratory Rate 16 12/08/2023 5:26 PM CDT Oxygen Saturation 91% 12/08/2023 5:26 PM CDT Inhaled Oxygen Concentration - - Weight 135.3 kg (298 lb 3.2 oz) 024 12:12 AM CDT Height 158.8 cm (5' 2.5) 12/08/2023 12 :12 AM CDT Body Mass Index 53.67 12/08/2023 12:12 AM CDT Plan of Treatment Health Maintenance Due Date Last Done Comments DEXA/DXA scan for age 65+ 2006 Zoster (shingles) series for age 50+ (2 of 3) 04/07/2013 02/10/2013 RSV vaccine for adults or (1 - 1-dose 75+ series) 2016 Medicare Wellness for age 65+ 12/22/2022 12/21/2021 COVID-19 vaccine series ( season) 2023 06/13/2022, 11/23/2021, 02/10/2021, Additional history exists Depression screening for age 12+ 01/16/2024 01/15/2023, 01/11/2023, 12/24/2021, Additional history exists BMI (ht and wt on same day) for age 18+ 09/12/2024 09/13/2023, 01/11/2023, 12/21/2021 Influenza Vaccine (Season Ended) 2024 01/11/2023, 01/22/2013, 02/19/2007, Additional history exists Tetanus booster 08/14/2026 08/14/2016, 12/11/2006 Pneumococcal series for age 50+ Completed 06/25/2015, 12/11/2006 Tdap Completed 08/14/2016 Hepatitis B series for 19+ Aged Out N o longer eligible based on patient's age to complete this topic Insurance [id number] [id number] [facility] MEDICA DUAL SOLUTIONS [facility] Advance Directives Documents on File Type Date Recorded Patient Retail Financial Analyst Expl anation Power of Corn Crop Supervisor 05/02/2005 CARLOS CHAPIN, POA, 05/02/2005 * Full Code (Latest Code Status on File) Date Activated Date Inactivated Comments 12/08/2023 10:38 AM 12/08/2023 9:30 PM Question Answer Comments Code Status Discussion: Reviewed Preferences Care Teams Leak Operator Paraffin Plant Relationship Specialty Start Date End Date Paris Carrasquillo PCP - General 12/21/21
--- OUTSIDE RECORDS SUMMARY | 2024-10-20 16:54 | XMS_ITS | Patient Health Record ---
Author Organization [facility] Address [address] [address] [place] [address] Support Name Relationship Address Phone SEFERINO CURTIS Guarantor Unknown [phone] Reason For Referral No Information Medications Medication SIG (Take, Route, Frequency, Duration) Notes Start Date End Date Status Metoprolol Tartrate (50 MG) DAILY *please review for potential update for e-prescription and drug interaction check* Active Fish Oil (1200 MG) DAILY *please revie w for potential update for e-prescription and drug interaction check* Active Aspirin (325 MG) DAILY *please review for potential update for e-prescription and drug interaction check* Active Vitamin E (400 UNIT) DAILY *please rev iew for potential update for e-prescription and drug interaction check* Active Vitamin D (2000 UNIT) DAILY *please re view for potential update for e-prescription and drug interaction check* Active Vitamin C (500 MG) DAILY *please revie w for potential update for e-prescription and drug interaction check* Active Iron (325 (65 Fe) MG) DAILY *please re view for potential update for e-prescription and drug interaction check* Active Levothyroxine Sodium (75 MCG) DAILY *please review for potential update for e-prescription and drug interaction check* Active Crestor (10 MG) DAILY *please review f or potential update for e-prescription and drug interaction check* Active Lutein (6 MG) DAILY *please review f or potential update for e-prescription and drug interaction check* Active Calcium (500 MG) BID *please review for potential update for e-prescription and drug interaction check* Active Multi Vitamin/Minerals (uncertain of dosage) DAILY *please review for potential update for e-prescription and drug interaction check* Active Problems Problem Type SNOMED Code ICD Code Onset Dates Problem Status W/U Status Risk Notes Problem Surgical follow-up (790747768) Aftercare following surgery of the musculoskeletal system, NEC (V58.78) 3 Active confirmed Problem S/P Hip joint replacement (use search on code to be specific) (V43.64) 4 Active confirmed Problem Disorder of shoulder region (222309077) Impingement Syndrome (726.2) 3 Active confirmed Problem Sprains and stra ins of shoulder and upper arm: Other specified sites of shoulder and upper arm (840.8) 3 Active confirmed Problem 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 (021757759) Other derangement of joint: Articular cartilage disorder shoulder region (718.01) 3 Active confirmed Problem Arthralgia of the pelvic region and thigh (567703740) Pain-Hip (719.45) 4 Active confirmed Plan Of Treatment No Information Insurance Providers Payer Name Payer Address Payer Phone Subscriber Number Group Number Insured Name Patient Relationship to Insured Coverage Start Date Coverage End Date MEDICA [address] [address] [place] [address] [phone] [id number] SEFERINO CURTIS Self - patient is the insured Medicare of [place] [address] [facility] [place] [address] [id number] SEFERINO CURTIS Self - patient is the insured [place] [employer] [address] [place] [place] [address] [phone] [id number] SEFERINO CURTIS Self - patient is the insured
--- NOTE | 2024-10-20 17:03 | ED.GENADULT ---
HPI - General Adult General Time Seen by Provider: 17:03 Date Seen: 10/20/24 Chief complaint: Edema Stated complaint: unspecified complaint Time Seen by Provider: 10/20/24 17:03 Source: patient, EMS and RN notes reviewed Mode of arrival: EMS Limitations: no limitations History of Present Illness HPI narrative: This 84-year-old female is brought in by [facility] from [facility] in [facility] for concern of edema not responding to Lasix. She notes that she does not nor medicines, she states her pills are given to her. The facility reported that she had her Lasix increased over the weekend to 80 mg daily, was back down to 40 mg today. She feels a little more short of breath than usual with activity. She reportedly had a chest x-ray a week ago with pneumonia, was repeated on the and still had pneumonia. She feels like her legs are swollen. She wears wraps on her lower extremities during the day, she states the left leg was more painful in the wrap today. She feels like her legs are more swollen. She denies any chest pain, no palpitations. She is not on any blood thinners reportedly. No fevers or chills, no cough. She states she wants to go home. She is noted to have chronic lymphedema. Related Data Home Medications ?Medication ?Instructions ?Recorded ?Confirmed amoxicillin 875 mg-potassium 1 tab PO BID 10/20/24 10/20/24 clavulanate 125 mg tablet aspirin 81 mg tablet,delayed 81 mg PO DAILY 10/20/24 10/20/24 release azithromycin 250 mg tablet mg PO 10/20/24 budesonide-formoterol HFA 160 2 puff inhalation BID 10/20/24 10/20/24 mcg-4.5 mcg/actuation aerosol inhaler calcium carbonate (Calcium Antacid) mg PO 10/20/24 calcium carbonate (Oyster Shell mg PO 10/20/24 Calcium 500) cholecalciferol (vitamin D3) 50 1 PO DAILY 10/20/24 mcg (2,000 unit) capsule (Vitamin D3) ferrous sulfate 325 mg (65 mg 325 mg PO BID 10/20/24 10/20/24 iron) tablet (FeroSul) furosemide 40 mg tablet 40 mg PO DAILY 10/20/24 10/20/24 hydroxyzine HCl 25 mg tablet 25 mg PO Q6H PRN itch 10/20/24 10/20/24 ipratropium 0.5 mg-albuterol 3 mg 1 inhalation 3XD 10/20/24 (2.5 mg base)/3 mL nebulization soln levothyroxine 75 mcg tablet 75 mcg PO QAM disorder of thyroid 10/20/24 10/20/24 gland lutein 20 mg capsule 1 PO DAILY 10/20/24 metoprolol succinate 50 mg 50 mg PO DAILY 10/20/24 10/20/24 tablet,extended release 24 hr mirabegron 25 mg tablet,extended 25 mg PO DAILY 10/20/24 10/20/24 release 24 hr mirabegron 50 mg tablet,extended 50 mg PO DAILY 10/20/24 10/20/24 release 24 hr [id number]-[id number]-sgme 8 mg-folic 400 1 tab PO DAILY 10/20/24 10/20/24 mcg-K 50 mcg-lutein 300 mcg tablet (Centrum Silver Women) omeprazole 20 mg capsule,delayed 20 mg PO DAILY 10/20/24 10/20/24 release rosuvastatin 10 mg tablet 10 mg PO QPM 10/20/24 10/20/24 Allergies Allergy/AdvReac Type Severity Reaction Status Date / Time No Known Drug Allergies Allergy Verified 10/14/22 20:39 Review of Systems Status of ROS: Reports: 6 or more systems reviewed and unremarkable except as noted in History and below [facility] Social History What is your current living situation?: I presently have a place to live Problems where you live: no known problems Problems where you live details: N/A In the past 12 months, utilities in danger of being shut off: no In past 12 months, lack of transportation kept you from medical appts, meetings, work, or getting things needed for daily living: no In the past 12 mos, have been you worried that your food would run out before you had money to buy more?: never true In the past 12 mos, the food you bought just didn't last and you didn't have money to buy more?: never true Smoking Status: Former smoker How often do you have a drink containing alcohol: monthly or less AUDIT-C Alcohol total score: 1 Non-prescribed substance use: denies use How often does anyone, including family, friends and others, physically hurt you: never How often does anyone, including family, friends and others, insult or talk down to you: never How often does anyone, including family, friends and others, threaten you with harm: never How often does anyone, including family, friends and others, scream or curse at you: never service: No Exam Const: Vital Signs, click to edit/add: Vital Signs - 24 hr 10/20/24 16:39 10/20/24 16:45 10/20/24 17:00 Temperature 97.2 F L Pulse Rate 112 H 104 H Pulse Rate [Pulse Oximeter] 104 H Respiratory Rate Blood Pressure [Ri ght Upper Arm] 134/84 Pulse Oximetry 94 93 93 Oxygen Delivery Me thod Room Air 10/20/24 17:15 10/20/24 17:31 10/20/24 17:45 Temperature Pulse Rate 107 H 105 H Pulse Rate [Pulse Oximeter] Respiratory Rate 26 H Blood Pressure [Ri ght Upper Arm] Pulse Oximetry 95 92 Oxygen Delivery Me thod 10/20/24 18:00 10/20/24 18:15 10/20/24 18:30 Temperature Pulse Rate 109 H Pulse Rate [Pulse Oximeter] Respiratory Rate 17 12 16 Blood Pressure [Ri ght Upper Arm] Pulse Oximetry 90 Oxygen Delivery Me thod 10/20/24 18:45 10/20/24 19:00 10/20/24 19:15 Temperature Pulse Rate Pulse Rate [Pulse Oximeter] Respiratory Rate 21 21 24 Blood Pressure [Ri ght Upper Arm] Pulse Oximetry Oxygen Delivery Me thod 10/20/24 19:22 10/20/24 19:23 Temperature Pulse Rate Pulse Rate [Pulse Oximeter] 109 H Respiratory Rate 18 Blood Pressure [Ri ght Upper Arm] 140/80 H Pulse Oximetry 91 Oxygen Delivery Me thod Room Air This 84-year-old female is alert, interactive, no apparent distress. Able speak in complete sentences, speech is normal, no hoarseness. Symmetrical facial function, sclera clear, conjugate gaze. Neck is thicker but do not note any definite jugular venous distension. She certainly has no neck masses. Lungs are clear, no wheezing or crackles, no tachypnea, no accessory muscle use. Heart rate is somewhat fast, there is either ectopy or irregularity to it, do not hear any murmur. Abdomen is obese but soft, no rebound or guarding noted, underlying masses or organomegaly would be difficult to palpate due to body habitus. She has symmetric thickened lower extremities, cannot say that there is any erythema, legs are quite large. There is some indentations from where her boots were wrapping but no secondary infection. Neurovascular intact. Documenting provider has reviewed patient's vital signs: yes Course Course ED Course: Will look at patient's heart closer, look at possible arrhythmias complicating her picture. I am unsure if any paperwork was sent with her, will need to talk to nursing staff and try to review this. Will look at portable chest x-ray in full complement of labs to see if there is any concordant ongoing pneumonia, congestive heart failure. Chronic lymphedema if that is what she has is usually more responsive to physical therapy modalities and wrapping modalities than it is just straight up diuretics. We will evaluate this patient and see if there is anything further that we can find a or recommend. Reevaluation(s) Time of Reevaluation #1: 17:55 Reevaluation #1: Patient's EKG does confirm atrial fibrillation. Her paperwork does not show any history of atrial fibrillation. Her diagnoses are COPD, hypertensive heart disease with heart failure, prediabetes, obstructive sleep apnea, lymphedema, functional urinary incontinence, morbid obesity, hypothyroidism, anemia, GERD. Patient is attempt resuscitation with CPR, medical treatments are selective treatment. Time of Reevaluation #2: 19:12 Reevaluation #2: Patient is wanting to just go home but understands that she is coming into the hospital. She is in agreement with this. She is just getting the 25 mg immediate release metoprolol. Reviewed with her that she is in a rhythm called atrial fibrillation. We did discuss this. We also reviewed that she is going to get a chest CT PE protocol. She notes that she has a battery in her back, wonder she has got a stimulator for pain?, reviewed with her that the CT is safe for this. This is not an MRI that we are ordering. Consultations Consultation #1: Did review with the hospitalist Dr. Epps. We discussed this case. Patient does not seem able to manage any medication changes such as having her increase her metoprolol. She is reportedly in an assisted living. We do not have any updated echo. Did look in her old records and an EKG from 2023 showed sinus bradycardia at 59 beats per minute. I do think atrial fibrillation is a new diagnosis. With this question of recent pneumonia, the abnormal chest x-ray and new onset atrial fibrillation, we are going to do chest CT PE protocol after discussing this with the hospitalist. This will give us much better information about her cardiopulmonary status, any underlying infectious etiology. We will place her observation at this time. I will update the patient. She also did want COVID testing done, did do the triple viral swab. Time: 19:02 Vital Signs Vital signs: Initial Vital Signs Temperature 97.2 F L 10/20/24 16:39 Temperature Source Temporal Artery Scan 10/20/24 16:39 Pulse Rate 104 H 10/20/24 16:39 Pulse Rhythm Regular 10/20/24 16:39 Blood Pressure 134/84 10/20/24 16:39 Blood Pressure Mean 100 10/20/24 16:39 Blood Pressure Position Sitting 10/20/24 16:39 Pulse Oximetry 94 10/20/24 16:39 Oxygen Delivery Method Room Air 10/20/24 16:39 Vital Signs Temperature 97.2 F L 10/20/24 16:39 Pulse Rate 104 H 10/20/24 16:39 Blood Pressure 134/84 10/20/24 16:39 Pulse Oximetry 94 10/20/24 16:39 Oxygen Delivery Method Room Air 10/20/24 16:39 Temperature 97.6 F 10/20/24 20:05 Pulse Rate 101 H 10/20/24 20:05 Respiratory Rate 18 10/20/24 20:28 Blood Pressure 138/88 10/20/24 20:05 Pulse Oximetry 93 10/20/24 20:28 Oxygen Delivery Method Room Air 10/20/24 20:28 Medications Administered Medications: Discontinued Medications Generic Name Dose Route Start Last Admin Trade Name Freq PRN Reason Stop Dose Admin Metoprolol Tartrate 25 mg 10/20/24 19:05 10/20/24 19:09 Metoprolol Tartrate 25 Mg Tablet PO 10/20/24 19:06 25 mg ONCE ONE Administration Medical Decision Making Lab Data Lab results reviewed: Yes I reviewed the patient's lab results Labs: Lab Results 10/20/24 10/20/24 Range/Units 17:40 19:10 WBC 6.36 (4.50-11.00) K/uL RBC 4.67 (4.00-5.20) m/uL Hgb 13.8 (12.0-16.0) gm/dL Hct 44.0 (33.0-51.0) % MCV 94 (80-100) fL MCH 30 (26-34) pg MCHC 31 L (32-36) gm/dL RDW Coeff of Yakelni 13.2 (11.5-15.5) % Plt Count 210 (140-440) K/uL Neut % (Auto) 70.2 (42.0-72.0) % Lymph % (Auto) 18.1 L (20-44) % [place] % (Auto) 8.2 (0.0-11.0) % Eos % (Auto) 2.5 (0.0-7.0) % Baso % (Auto) 0.8 (0.0-3.0) % Neut # (Auto) 4.47 (1.7-7.0) K/uL Lymph # (Auto) 1.20 (0.90-2.90) K/uL [place] # (Auto) 0.50 (0.00-0.90) K/UL Eos # (Auto) 0.16 (0.00-0.50) K/uL Baso # (Auto) 0.05 (0.00-0.30) K/uL Abs Immat Gran (auto) 0.01 (0.00-0.30) K/uL Imm/Tot Granulo (auto) 0.2 % Sodium 141 (135-149) mmol/L Potassium 4.5 (3.6-5.1) mmol/L Chloride 101 (96-114) mmol/L Carbon Dioxide 35 H (20-32) mmol/L Anion Gap 5 L (7-15) mEq/L BUN 24 (7-30) mg/dL Creatinine 0.9 (0.5-1.5) mg/dL Estimated Creat Clear 33.71 Estimated GFR 63 ml/min Glucose 105 (60-115) mg/dL Calcium 9.0 (8.4-10.6) mg/dL Magnesium 2.1 (1.5-2.6) mg/dL Total Bilirubin 0.4 (0.1-1.5) mg/dL AST 25 (12-35) U/L ALT 18 (4-35) U/L Alkaline Phosphatase 56 (40-150) U/L Troponin I < 0.01 (0.01-0.04) ng/mL NT-Pro-B Natriuret Pep 565 H (See Note) pg/mL Total Protein 7.0 (6.0-8.3) g/dL Albumin 4.2 (3.3-5.0) g/dL TSH 1.830 (0.270-4.200) uIU/mL SARS-CoV-2 (PCR) Negative SARS-CoV-2 (Negative) Influenza Type A (PCR) Negative PCR FLU A (Negative) Influenza Type B (PCR) Negative PCR FLU B (Negative) RSV (PCR) Negative PCR RSV (Negative) Imaging Data Chest x-ray: Attestation: I have reviewed the pertinent imaging results. My impression: Poor inspiration, cardiomegaly. Do see abnormality that seems to be different from the heart border on the left lung field. Await Radiology over-read. Radiologist's impression: Patient: SEFERINO CURTIS Facility:?[facility] Patient ID:?[id number] Site Patient ID:?[id number]. Site :?[id number] Study:?XRay-Chest PORTABLE-10/20/2024 5:58:14 PM Ordering Physician:Tiffani Nagel Final Report: INDICATION: Shortness of breath, chest edema, lower extremity edema TECHNIQUE: Chest radiograph 1 view COMPARISON: None FINDINGS: The sensitivity and specificity of the exam are severely limited by the patient`s body habitus. Mediastinum: The mediastinum is normal in appearance. Moderate to severe cardiomegaly is noted. Lung: Small lung volumes are present with mild pulmonary vascular congestion patchy consolidation seen in the left lung base. A small focus of ill-defined airspace opacities are present in the right lateral upper lung zone. No sign of pleural effusion seen. No pneumothorax is identified. Bone and Soft tissue: Unremarkable for age. IMPRESSIONS: 1. Small lung volumes are present with mild pulmonary vascular congestion patchy consolidation seen in the left lung base. A small focus of ill-defined airspace opacities are present in the right lateral upper lung zone. These findings can be seen with atelectasis and/or pneumonia. 2. Moderate to severe cardiomegaly is noted. Dictated by James Nichols MD @ 10/20/2024 6:07:48 PM Dictated by: James Nichols MD @ 10/20/2024 18:07:52 (Electronic Signature) CT scan - chest: Attestation: I have reviewed the pertinent imaging results. Radiologist's impression: Patient: SEFERINO CURTIS Facility:?[facility] Patient ID:?[id number] Site Patient ID:?[id number]. Site :?[id number] Study:?CT-Chest Angio PE STUDY-10/20/2024 7:56:57 PM Ordering Physician:?Ibrahima Nagel Final Report: INDICATION: Shortness of breath, abnormal chest x-ray TECHNIQUE: CT chest PE was acquired with 95 cc Isovue 370 IV contrast. COMPARISON: Same day chest radiograph, chest CT 12/08/2023 FINDINGS: Heart and vasculature: Contrast opacification of the pulmonary arterial tree is adequate. No sign of pulmonary embolism. Heart size is normal. The thoracic aorta is normal in caliber. Top-normal main pulmonary artery caliber measuring 3.4 cm. Small pericardial effusion. Moderate to severe coronary artery calcifications Lungs and pleura: Increased subpleural ground-glass nodule in the posterolateral right upper lobe measuring 2.3 cm, previously 2 cm. New anterior left upper lobe and lingular consolidative opacity versus atelectasis. Linear bibasal opacities likely reflect atelectasis/scarring. No pleural effusion or pneumothorax. Lymph nodes/mediastinum: Enlarged subcarinal lymph node measuring 1.3 cm. Thyroid: Heterogeneous left thyroid, without discrete nodule. Chest wall: No masses. Upper abdomen: Similar large hiatal hernia with intrathoracic location of nearly the entire stomach. Bones: Bilateral glenohumeral joint degenerative change. Multilevel degenerative change of the imaged spine. IMPRESSION: 1. No acute pulmonary embolism. 2. Increased right upper lobe ground-glass nodule may reflect worsening focus of infection/inflammation, including atypical etiologies, however malignancy is a concern. Consider further evaluation with PET-CT. 3. Left upper lobe and lingular consolidative opacities are indeterminate for additional infectious/inflammatory process versus atelectasis. 4. Similar large hiatal hernia with intrathoracic location of nearly the entire stomach. 5. Small pericardial effusion. 6. Enlarged subcarinal lymph node is nonspecific. Please note that all CT scans at this facility use dose modulation, iterative reconstruction, and/or weight-based dosing when appropriate to reduce radiation dose to as low as reasonably achievable. Dictated by Cat Valdez MD @ 10/20/2024 8:24:59 PM (Electronic Signature) ECG Data Attestation: I personally reviewed and interpreted this ECG as follows: (Atrial fibrillation with rapid ventricular response, 104 beats per minute. Low-voltage QRS. Nonspecific T-wave changes but nothing indicative active ischemia.) Prior ECG tracings: not available for review Discharge Plan Discharge Clinical Impression: Atrial fibrillation with rapid ventricular response, Lymphedema Patient Disposition: Admitted As Observation
--- NOTE | 2024-10-20 17:20 | CRLHL7_ITS ---
For Patients: As a result of the Century Cures Act, medical imaging exams and procedure reports are released immediately into your electronic medical record. You may view this report before your referring provider. If you have questions, please contact your health care provider. INDICATION: Shortness of breath, chest edema, lower extremity edema TECHNIQUE: Chest radiograph 1 view COMPARISON: None FINDINGS: The sensitivity and specificity of the exam are severely limited by the patient`s body habitus. Mediastinum: The mediastinum is normal in appearance. Moderate to severe cardiomegaly is noted. Lung: Small lung volumes are present with mild pulmonary vascular congestion patchy consolidation seen in the left lung base. A small focus of ill-defined airspace opacities are present in the right lateral upper lung zone. No sign of pleural effusion seen. No pneumothorax is identified. Bone and Soft tissue: Unremarkable for age. IMPRESSIONS: 1. Small lung volumes are present with mild pulmonary vascular congestion patchy consolidation seen in the left lung base. A small focus of ill-defined airspace opacities are present in the right lateral upper lung zone. These findings can be seen with atelectasis and/or pneumonia. 2. Moderate to severe cardiomegaly is noted. Dictated by James Nichols MD @ 10/20/2024 6:07:48 PM Dictated by: James Nichols MD @ 10/20/2024 18:07:52 (Electronically Signed)
[2024-10-20 18:10] LABS: Albumin* 4.2 g/dL (3.3-5.0); Chloride* 101 mmol/L (96-114)
[2024-10-20 18:11] LABS: Potassium* 4.5 mmol/L (3.6-5.1); Sodium* 141 mmol/L (135-149)
[2024-10-20 18:13] LABS: Alanine Aminotransferase* 18 U/L (4-35); Alkaline Phosphatase* 56 U/L (40-150); Anion Gap 5 mEq/L (7-15); Aspartate Amino Transferase* 25 U/L (12-35); Bilirubin Total* 0.4 mg/dL (0.1-1.5); Blood Urea Nitrogen* 24 mg/dL (7-30); Carbon Dioxide* 35 mmol/L (20-32); Creatinine* 0.9 mg/dL (0.5-1.5); Est. Creatinine Clearance* 33.71; Estimated Glomerular Filt Rate 63 ml/min
[2024-10-20 18:14] LABS: Calcium* 9.0 mg/dL (8.4-10.6); Glucose* 105 mg/dL (60-115); Total Protein* 7.0 g/dL (6.0-8.3)
[2024-10-20 18:27] LABS: Hematocrit 44.0 % (33.0-51.0); Hemoglobin* 13.8 gm/dL (12.0-16.0); Immature Granulocytes Abs Auto 0.01 K/uL (0.00-0.30); Immature Granulocytes Pct Auto 0.2 %; Mean Corpuscular HGB Conc 31 gm/dL (32-36); Mean Corpuscular Hemoglobin 30 pg (26-34); Mean Corpuscular Volume 94 fL (80-100); RDW Coefficient of Variation % 13.2 % (11.5-15.5); Red Blood Count 4.67 m/uL (4.00-5.20); White Blood Count* 6.36 K/uL (4.50-11.00)
[2024-10-20 18:28] LABS: NT Pro B Type NatriureticPept* 565 pg/mL (See Note)
[2024-10-20 18:29] LABS: Lymphocytes Absolute Auto 1.20 K/uL (0.90-2.90); Slide Review Reflex No
--- NOTE | 2024-10-20 19:03 | CRLHL7_ITS ---
For Patients: As a result of the 21st Century Cures Act, medical imaging exams and procedure reports are released immediately into your electronic medical record. You may view this report before your referring provider. If you have questions, please contact your health care provider. INDICATION: Shortness of breath, abnormal chest x-ray TECHNIQUE: CT chest PE was acquired with 95 cc Isovue 370 IV contrast. COMPARISON: Same day chest radiograph, chest CT 12/08/2023 FINDINGS: Heart and vasculature: Contrast opacification of the pulmonary arterial tree is adequate. No sign of pulmonary embolism. Heart size is normal. The thoracic aorta is normal in caliber. Top-normal main pulmonary artery caliber measuring 3.4 cm. Small pericardial effusion. Moderate to severe coronary artery calcifications Lungs and pleura: Increased subpleural ground-glass nodule in the posterolateral right upper lobe measuring 2.3 cm, previously 2 cm. New anterior left upper lobe and lingular consolidative opacity versus atelectasis. Linear bibasal opacities likely reflect atelectasis/scarring. No pleural effusion or pneumothorax. Lymph nodes/mediastinum: Enlarged subcarinal lymph node measuring 1.3 cm. Thyroid: Heterogeneous left thyroid, without discrete nodule. Chest wall: No masses. Upper abdomen: Similar large hiatal hernia with intrathoracic location of nearly the entire stomach. Bones: Bilateral glenohumeral joint degenerative change. Multilevel degenerative change of the imaged spine. IMPRESSION: 1. No acute pulmonary embolism. 2. Increased right upper lobe ground-glass nodule may reflect worsening focus of infection/inflammation, including atypical etiologies, however malignancy is a concern. Consider further evaluation with PET-CT. 3. Left upper lobe and lingular consolidative opacities are indeterminate for additional infectious/inflammatory process versus atelectasis. 4. Similar large hiatal hernia with intrathoracic location of nearly the entire stomach. 5. Small pericardial effusion. 6. Enlarged subcarinal lymph node is nonspecific. Please note that all CT scans at this facility use dose modulation, iterative reconstruction, and/or weight-based dosing when appropriate to reduce radiation dose to as low as reasonably achievable. Dictated by Cat Valdez MD @ 10/20/2024 8:24:59 PM (Electronically Signed)
[2024-10-20] MEDS: METOPROLOL TARTRATE 25 MG TABLET PO (19:09)
[2024-10-20 19:29] LABS: TSH With Reflex to FT4* 1.830 uIU/mL (0.270-4.200)
[2024-10-20 19:58] LABS: PCR FLU A Negative PCR FLU A (Negative); PCR FLU B Negative PCR FLU B (Negative); PCR RSV Negative PCR RSV (Negative); SARS PCR* Negative SARS-CoV-2 (Negative)
--- NOTE | 2024-10-20 21:08 | PM.IMHP1 ---
Assessment and Plan Assessment and plan (1) Atrial fibrillation with rapid ventricular response: Problem comment: Newly noted on EKG 10/20. RVR is fairly mild with HR 100-110. Status: Acute Assessment and Plan: Potentially driving decompensated CHF, but unclear if she is truly decompensated. Difficult exam. No pulmonary edema. 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 Unclear if she is actually decompensated. Recommend obtaining outside records in am. Complains of leg edema, but has chronic poorly controlled lymphedema. No pulmonary edema. -Hold am lasix given CT PE study done in ER, watch renal function and resume as able -Monitor daily weights -Echo as above -Recommend ANUJ wraps to bilateral LE (3) Lung nodule: Problem comment: Noted on CT PE study 10/20. Recommend close follow up, consider PET Status: Acute Assessment and Plan: CT resulted after seeing patient, so this has yet to be discussed. Recent pneumonia treated with antibiotics outpatient. CT obtained to try to differentiate if there was pulmonary edema vs consolidative process from abnormal CXR. Unclear relevance at this time, but cannot rule out malignancy. Current presentation is not consistent with pneumonia, but would expect residual findings on imaging if she had pneumonia just 2 weeks ago. -Recommend follow up with referral to pulmonology (4) Lymphedema: Problem comment: Chronic. Patient has compression wraps Status: Acute Assessment and Plan: Continue compression. If wraps not available here, recommend ANUJ wraps (5) VASU (obstructive sleep apnea): Problem comment: Chronic. Patient intolerant to her CPAP mask (blisters/reaction on nose) so she does not use it. Status: Acute Assessment and Plan: Recommend outpatient assessment for different mask (6) COPD (chronic obstructive pulmonary disease): Status: Acute Assessment and Plan: Patient with few wheezes, but does not seem to be in exacerbation -Continue home inhaled therapies (albuterol HFA and Duonebs) (7) Hypertension: Status: Acute Assessment and Plan: Reasonably well controlled. Suspect she will tolerate higher dose of metoprolol for a fib (8) OAB (overactive bladder): Problem comment: Chronic Status: Acute (9) Hypothyroidism: Status: Acute Assessment and Plan: TSH checked for new a fib and within normal limit. -Continue DEPENDENCY PROGRAM DIRECTOR levothyroxine Total Time Spent Total Time Spent: Greater than 75 minutes spent in discussion with ER, review of clinical data and patient evaluation as well as documentation Hospitalist- H&P: HPI History of Present Illness Time Seen by Provider: 21:08 Date Seen: 10/20/24 Chief complaint: unspecified complaint Narrative: Tiffanie French is a 84 year old female with PMH significant for hypertension, unspecified congestive heart failure, obesity, lymphedema, VASU (not using CPAP), COPD and hyperlipidemia who was transported to the ER from her assisted living facility for worsening lower extremity edema. Patient reports that she was seen by the provider at her facility recently for possible pneumonia. She was treated with antibiotics about 2 weeks ago, but notes that she continues with some shortness of breath. She denies much in the way of cough or malaise and denies any fevers. She denies any wheezing. She reports that she has trouble with lymphedema which has been worse. According to the patient, the outpatient provider increased her lasix for a few days while treating pneumonia and repeated a CXR last Sunday and said it didn't show improvement so she was sent to the hospital for further work up? At any rate, her SpO2 is acceptable on room air and she is not in any respiratory distress. Vital signs revealed tachycardia and EKG showed a fib with RVR. There is no clear history of this in her past. CXR repeated here showed persistent streaky opacity in the RUL which may have been inflammation vs atelectasis. Her proBNP was mildly elevated at 565 raising concern about potential for decompensated heart failure with new atrial fibrillation. Given the abnormal CXR, it was reasonable to image further, so PE study was obtained raising concern for this RUL showing a worsening ground glass nodule which could represent infection vs inflammation vs underlying malignancy and PET CT was recommended. There is a small pericardial effusion, but no pulmonary edema or effusion. Patient is admitted for cardiac monitoring with plan for echocardiogram and may need outpatient referral to pulmonology for further investigation of RUL nodule. Review of Systems Status of ROS: Reports: 10 or more systems reviewed and unremarkable except as noted in History and below Medical Decision Making Medical Decision Making Has patient completed a Health Care Directive: Yes PFSH PFS Medical History (Updated 10/20/24 @ 21:40 by Katlyn Epps MD) Hypothyroidism ?E03.9 - Hypothyroidism, unspecified (ICD-10) OAB (overactive bladder) ?N32.81 - Overactive bladder (ICD-10) Hypertension ?I10 - Essential (primary) hypertension (ICD-10) COPD (chronic obstructive pulmonary disease) ?J44.9 - Chronic obstructive pulmonary disease, unspecified (ICD-10) VASU (obstructive sleep apnea) ?G47.33 - Obstructive sleep apnea (adult) (pediatric) (ICD-10) Social History What is your current living situation?: I presently have a place to live Problems where you live: no known problems Problems where you live details: N/A In the past 12 months, utilities in danger of being shut off: no In past 12 months, lack of transportation kept you from medical appts, meetings, work, or getting things needed for daily living: no In the past 12 mos, have been you worried that your food would run out before you had money to buy more?: never true In the past 12 mos, the food you bought just didn't last and you didn't have money to buy more?: never true Smoking Status: Former smoker How often do you have a drink containing alcohol: monthly or less AUDIT-C Alcohol total score: 1 Non-prescribed substance use: denies use How often does anyone, including family, friends and others, physically hurt you: never How often does anyone, including family, friends and others, insult or talk down to you: never How often does anyone, including family, friends and others, threaten you with harm: never How often does anyone, including family, friends and others, scream or curse at you: never service: No Meds Home Medications and Allergies Home Medications ?Medication ?Instructions ?Recorded ?Confirmed ?Type amoxicillin 875 mg-potassium 1 tab PO BID 10/20/24 10/20/24 History clavulanate 125 mg tablet aspirin 81 mg tablet,delayed 81 mg PO DAILY 10/20/24 10/20/24 History release azithromycin 250 mg tablet mg PO 10/20/24 History budesonide-formoterol HFA 160 2 puff inhalation BID 10/20/24 10/20/24 History mcg-4.5 mcg/actuation aerosol inhaler calcium carbonate (Calcium Antacid) mg PO 10/20/24 History calcium carbonate (Oyster Shell mg PO 10/20/24 History Calcium 500) cholecalciferol (vitamin D3) 50 1 PO DAILY 10/20/24 History mcg (2,000 unit) capsule (Vitamin D3) ferrous sulfate 325 mg (65 mg 325 mg PO BID 10/20/24 10/20/24 History iron) tablet (FeroSul) furosemide 40 mg tablet 40 mg PO DAILY 10/20/24 10/20/24 History hydroxyzine HCl 25 mg tablet 25 mg PO Q6H PRN itch 10/20/24 10/20/24 History ipratropium 0.5 mg-albuterol 3 mg 1 inhalation 3XD 10/20/24 History (2.5 mg base)/3 mL nebulization soln levothyroxine 75 mcg tablet 75 mcg PO QAM disorder of thyroid 10/20/24 10/20/24 History gland lutein 20 mg capsule 1 PO DAILY 10/20/24 History metoprolol succinate 50 mg 50 mg PO DAILY 10/20/24 10/20/24 History tablet,extended release 24 hr mirabegron 25 mg tablet,extended 25 mg PO DAILY 10/20/24 10/20/24 History release 24 hr mirabegron 50 mg tablet,extended 50 mg PO DAILY 10/20/24 10/20/24 History release 24 hr [id number] 8 mg-folic 400 1 tab PO DAILY 10/20/24 10/20/24 History mcg-K 50 mcg-lutein 300 mcg tablet (Centrum Silver Women) omeprazole 20 mg capsule,delayed 20 mg PO DAILY 10/20/24 10/20/24 History release rosuvastatin 10 mg tablet 10 mg PO QPM 10/20/24 10/20/24 History Allergies Allergy/AdvReac Type Severity Reaction Status Date / Time No Known Drug Allergies Allergy Verified 10/14/22 20:39 Exam Narrative: Exam Narrative: General: Up in a recliner, no distress HEENT: NCAT Resp: Breathing is comfortable, speaking in full sentences. Few diffuse end expiratory wheezes, no ronchi CV: IRR, heart tones somewhat distant, but no murmur noted Abd: Obese, nontender Extremities: Significantly large bilateral lower extremities with minimal pitting edema Neuro: Alert and oriented, no lateralizing deficits Skin: No rash, warm and dry Const: Vital Signs, click to edit/add: Vital Signs - 24 hr 10/20/24 16:39 10/20/24 16:45 10/20/24 17:00 Temperature 97.2 F L Pulse Rate 112 H 104 H Pulse Rate [Pulse Oximeter] 104 H Pulse Rate [Right Pulse Oximeter] Respiratory Rate Blood Pressure [Le ft Arm] Blood Pressure [Ri ght Upper Arm] 134/84 Pulse Oximetry 94 93 [address] [address] [facility] 10/20/24 17:15 10/20/24 17:31 10/20/24 17:45 Temperature Pulse Rate 107 H 105 H Pulse Rate [Pulse Oximeter] Pulse Rate [Right Pulse Oximeter] Respiratory Rate 26 H Blood Pressure [Le ft Arm] Blood Pressure [Ri ght Upper Arm] Pulse Oximetry 95 92 Oxygen Delivery [facility] 10/20/24 18:00 10/20/24 18:15 10/20/24 18:30 Temperature Pulse Rate 109 H Pulse Rate [Pulse Oximeter] Pulse Rate [Right Pulse Oximeter] Respiratory Rate 17 12 16 Blood Pressure [Le ft Arm] Blood Pressure [Ri ght Upper Arm] Pulse Oximetry 90 Oxygen Delivery [facility] 10/20/24 18:45 10/20/24 19:00 10/20/24 19:15 Temperature Pulse Rate Pulse Rate [Pulse Oximeter] Pulse Rate [Right Pulse Oximeter] Respiratory Rate 21 21 24 Blood Pressure [Le ft Arm] Blood Pressure [Ri ght Upper Arm] Pulse Oximetry Oxygen Delivery [facility] 10/20/24 19:22 10/20/24 19:23 10/20/24 20:05 Temperature 97.6 F Pulse Rate Pulse Rate [Pulse Oximeter] 109 H Pulse Rate [Right Pulse Oximeter] 101 H Respiratory Rate 18 18 Blood Pressure [Le ft Arm] 138/88 Blood Pressure [Ri ght Upper Arm] 140/80 H Pulse Oximetry 91 [address] [address] [facility] 10/20/24 20:28 Temperature Pulse Rate Pulse Rate [Pulse Oximeter] Pulse Rate [Right Pulse Oximeter] Respiratory Rate 18 Blood Pressure [Le ft Arm] Blood Pressure [Ri ght Upper Arm] Pulse Oximetry 93 Oxygen Delivery Me thod Room Air Hospitalist - H&P: Result Labs Labs: Short CBC 10/20/24 Range/Units 17:40 WBC 6.36 (4.50-11.00) K/uL Hgb 13.8 (12.0-16.0) gm/dL Hct 44.0 (33.0-51.0) % Plt Count 210 (140-440) K/uL BMP 10/20/24 17:40 Sodium 141 Potassium 4.5 Chloride 101 Carbon Dioxide 35 H BUN 24 Creatinine 0.9 Glucose 105 Calcium 9.0 Cardiac Enzymes 10/20/24 Range/Units 17:40 Troponin I < 0.01 (0.01-0.04) ng/mL Liver Function 10/20/24 Range/Units 17:40 Total Bilirubin 0.4 (0.1-1.5) mg/dL AST 25 (12-35) U/L ALT 18 (4-35) U/L Alkaline Phosphatase 56 (40-150) U/L Albumin 4.2 (3.3-5.0) g/dL
[2024-10-20] MEDS: IPRAT-ALBUT 0.5-2.5 MG/3 ML NEB 1 NEB IH (21:59)
[2024-10-20] MEDS: SODIUM CHLORIDE 0.9 % (FLUSH) 10 ML SYRINGE 5 ML IVF (22:02)
[2024-10-21 03:00] VITALS: BP 140/95; PULSE 90; RESP 18; TEMP 36.3; O2SAT 92
--- NOTE | 2024-10-21 03:12 | PC.NURSE ---
Pt refusing to wear gait belt with transfers. Pt educated by multiple RN's. Pt stated she does not care,will not wear it and has the right to refuse.
--- NOTE | 2024-10-21 05:05 | PC.NURSE ---
Shift note: Patient was brought to the floor at 19:40 accompanied by a staff from ED. She was alert and oriented on arrival. Presented with the complaint of swelling legs that do not respond to Lasix. Vital signs stable. Patient preferred to use the recliner instead of bed and spent the shift sleeping in the recliner. SBA with walker. Patient refused the use GB fir ambulation. Telemetry reading was A.fib with RVR on admission but rate decreased to below 100 along the course of the night. Noted pedal edema but no SOB.
[2024-10-21] MEDS: IPRAT-ALBUT 0.5-2.5 MG/3 ML NEB 1 NEB IH (05:59)
[2024-10-21] MEDS: LEVOTHYROXINE 75 MCG TABLET PO (06:15)
[2024-10-21 06:36] LABS: Hematocrit 43.5 % (33.0-51.0); Hemoglobin* 13.9 gm/dL (12.0-16.0); Immature Granulocytes Abs Auto 0.01 K/uL (0.00-0.30); Immature Granulocytes Pct Auto 0.2 %; Mean Corpuscular HGB Conc 32 gm/dL (32-36); Mean Corpuscular Hemoglobin 30 pg (26-34); Mean Corpuscular Volume 93 fL (80-100); RDW Coefficient of Variation % 13.1 % (11.5-15.5); Red Blood Count 4.68 m/uL (4.00-5.20); White Blood Count* 6.58 K/uL (4.50-11.00)
[2024-10-21 06:39] LABS: Lymphocytes Absolute Auto 1.10 K/uL (0.90-2.90)
[2024-10-21 06:40] LABS: Slide Review Reflex No
[2024-10-21 06:57] LABS: Chloride* 103 mmol/L (96-114); Sodium* 140 mmol/L (135-149)
[2024-10-21 06:58] LABS: Potassium* 3.9 mmol/L (3.6-5.1)
[2024-10-21 07:00] LABS: Blood Urea Nitrogen* 20 mg/dL (7-30); Creatinine* 0.8 mg/dL (0.5-1.5); Est. Creatinine Clearance* 33.71; Estimated Glomerular Filt Rate 73 ml/min
[2024-10-21 07:01] LABS: Anion Gap 5 mEq/L (7-15); Calcium* 8.8 mg/dL (8.4-10.6); Carbon Dioxide* 32 mmol/L (20-32); Glucose* 100 mg/dL (60-115)
[2024-10-21 08:00] VITALS: BP 132/78; PULSE 102; RESP 18; TEMP 36.4; O2SAT 92
[2024-10-21] MEDS: OMEPRAZOLE 20 MG CAPSULE DR PO (08:57)
[2024-10-21] MEDS: MULTIVITAMIN/MINERALS 1 TABLET 1 TAB PO (08:57)
[2024-10-21] MEDS: METOPROLOL SUCCINATE (XL) 50 MG TAB 100 MG PO (08:57)
[2024-10-21] MEDS: APIXABAN 5 MG TABLET PO ×2 (08:58→17:19)
[2024-10-21] MEDS: SODIUM CHLORIDE 0.9 % (FLUSH) 10 ML SYRINGE 5 ML IVF (08:59)
[2024-10-21 11:00] VITALS: BP 145/80; PULSE 88
--- NOTE | 2024-10-21 12:35 | PM.IMPN1 ---
Assessment and Plan Assessment and plan (1) Atrial fibrillation with rapid ventricular response: Problem comment: Newly noted on EKG 10/20. RVR is fairly mild with HR 100-110. Previous EKG September 2022 shows NSR Potentially driving decompensated CHF, but unclear if she is truly decompensated. Difficult exam. No pulmonary edema. 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 Unclear if she is actually decompensated. Recommend obtaining outside records in am. Complains of leg edema, but has chronic poorly controlled lymphedema. No pulmonary edema. -Hold am lasix given CT PE study done in ER, watch renal function and resume as able -Monitor daily weights -Echo as above -Recommend ANUJ wraps to bilateral LE 10/21 in reviewing EMR, she does carry a diagnosis of heart failure however there is no delineation nor previous echocardiogram to determine type of heart failure. I do not see a recent cardiology consult note. No previous BNP. Weight November 2023 was 135.3 kg. Current weight is 126 kg. Status: Acute (3) Lung nodule: Problem comment: Noted on CT PE study 10/20 Recent pneumonia treated with antibiotics outpatient. CT obtained to try to differentiate if there was pulmonary edema vs consolidative process from abnormal CXR. Unclear relevance at this time, but cannot rule out malignancy. Current presentation is not consistent with pneumonia, but would expect residual findings on imaging if she had pneumonia just 2 weeks ago. -Recommend follow up with referral to pulmonology Status: Acute (4) Lymphedema: Problem comment: Chronic. Patient has compression wraps OT lymphedema consult completed - continue outpatient therapy Status: Acute (5) VASU (obstructive sleep apnea): Problem comment: Chronic. Patient intolerant to her CPAP mask (blisters/reaction on nose) so she does not use it. Outpatient follow-up for evaluation for new mask. Status: Acute (6) COPD (chronic obstructive pulmonary disease): Problem comment: No acute exacerbation Continue home medications Status: Acute (7) Hypertension: Problem comment: Reasonably well controlled. Suspect she will tolerate higher dose of metoprolol for a fib Status: Acute (8) OAB (overactive bladder): Problem comment: Chronic Status: Acute (9) Hypothyroidism: Problem comment: TSH checked for new a fib and within normal limit. 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 OT lymphedema consult completed. Metoprolol has been increased, Eliquis has been started. Sandra would need patient back early this afternoon as she has been started on new medications however echocardiogram has not yet been completed. Plan for discharge tomorrow morning Total Time Spent Total Time Spent: Today I spent 75 minutes seeing the patient, reviewing Expanse and EPIC notes/diagnostics, discussing the care plan with our care time that includes social work, PT/OT, pharmacy, RT, chcf and documenting my impressions and plan in the medical record. Subjective Date Seen: 10/21/24 Interval history: Patient reports feeling well this morning. Reminds me she was not feeling unwell when she was admitted. Denies headache or dizziness. Denies chest pain, palpitations, or shortness of breath. Tolerating orals without nausea vomiting. No abdominal pain. Exam Narrative: Exam Narrative: PHYSICAL EXAM General: Pleasant, conversant, NAD HEENT: Normocephalic, atraumatic, sclera white, EOMI, oral mucosa moist Cardiovascular: IRRR Pulmonary: CTA bilaterally without rhonchi, rales, expiratory wheezes. No dyspnea on room air Neurological: Alert, answering questions appropriately, cranial nerves intact, no focal findings Extremities: Bilateral lower extremity edema without erythema or rubor. Tender to touch. Neurovascularly intact Skin: Warm, dry. Const: Vital Signs, click to edit/add: Vital Signs - 24 hr 10/20/24 16:39 10/20/24 16:45 10/20/24 17:00 Temperature 97.2 F L Pulse Rate 112 H 104 H Pulse Rate [Pulse Oximeter] 104 H Pulse Rate [Right Pulse Oximeter] Respiratory Rate Blood Pressure [Le ft Arm] Blood Pressure [Ri ght Upper Arm] 134/84 Pulse Oximetry 94 93 93 Oxygen Delivery Me thod Room Air 10/20/24 17:15 10/20/24 17:31 10/20/24 17:45 Temperature Pulse Rate 107 H 105 H Pulse Rate [Pulse Oximeter] Pulse Rate [Right Pulse Oximeter] Respiratory Rate 26 H Blood Pressure [Le ft Arm] Blood Pressure [Ri ght Upper Arm] Pulse Oximetry 95 92 Oxygen Delivery Me thod 10/20/24 18:00 06/30/25 18:15 10/20/24 18:30 Temperature Pulse Rate 109 H Pulse Rate [Pulse Oximeter] Pulse Rate [Right Pulse Oximeter] Respiratory Rate 17 12 16 Blood Pressure [Le ft Arm] Blood Pressure [Ri ght Upper Arm] Pulse Oximetry 90 Oxygen Delivery Me thod 10/20/24 18:45 10/20/24 19:00 10/20/24 19:15 Temperature Pulse Rate Pulse Rate [Pulse Oximeter] Pulse Rate [Right Pulse Oximeter] Respiratory Rate 21 21 24 Blood Pressure [Le ft Arm] Blood Pressure [Ri ght Upper Arm] Pulse Oximetry Oxygen Delivery Me thod 10/20/24 19:22 10/20/24 19:23 10/20/24 20:05 Temperature 97.6 F Pulse Rate Pulse Rate [Pulse Oximeter] 109 H Pulse Rate [Right Pulse Oximeter] 101 H Respiratory Rate 18 18 Blood Pressure [Le ft Arm] 138/88 Blood Pressure [Ri ght Upper Arm] 140/80 H Pulse Oximetry 91 93 [facility] 10/20/24 20:28 10/20/24 21:00 10/20/24 21:30 Temperature Pulse Rate 111 H Pulse Rate [Pulse Oximeter] Pulse Rate [Right Pulse Oximeter] Respiratory Rate 18 18 Blood Pressure [Le ft Arm] Blood Pressure [Ri ght Upper Arm] Pulse Oximetry 93 93 [facility] Room Air 10/20/24 22:31 10/20/24 22:31 10/21/24 03:00 Temperature 97.4 F L 97.4 F L Pulse Rate Pulse Rate [Pulse Oximeter] Pulse Rate [Right Pulse Oximeter] 97 97 90 Respiratory Rate 18 18 18 Blood Pressure [Le ft Arm] 131/86 140/95 H Blood Pressure [Ri ght Upper Arm] Pulse Oximetry 93 92 Oxygen Delivery Me od Room Air Room Air 10/21/24 08:00 Temperature Pulse Rate Pulse Rate [Pulse Oximeter] Pulse Rate [Right Pulse Oximeter] 102 H Respiratory Rate 18 Blood Pressure [Le ft Arm] 132/78 Blood Pressure [Ri ght Upper Arm] Pulse Oximetry 92 Oxygen Delivery Me od Room Air Labs Labs: Laboratory Results - last 24 hr 10/20/24 10/20/24 10/21/24 17:40 19:10 06:05 WBC 6.36 6.58 RBC 4.67 4.68 Hgb 13.8 13.9 Hct 44.0 43.5 MCV 94 93 MCH 30 30 MCHC 31 L 32 RDW Coeff of Yakelin 13.2 13.1 Plt Count 210 186 Neut % (Auto) 70.2 73.7 H Lymph % (Auto) 18.1 L 16.3 L [place] % (Auto) 8.2 6.1 Eos % (Auto) 2.5 3.2 Baso % (Auto) 0.8 0.5 Neut # (Auto) 4.47 4.80 Lymph # (Auto) 1.20 1.10 [place] # (Auto) 0.50 0.40 Eos # (Auto) 0.16 0.21 Baso # (Auto) 0.05 0.03 Abs Immat Gran (auto) 0.01 0.01 Imm/Tot Granulo (auto) 0.2 0.2 Sodium 141 140 Potassium 4.5 3.9 Chloride 101 103 Carbon Dioxide 35 H 32 Anion Gap 5 L 5 L BUN 24 20 Creatinine 0.9 0.8 Estimated Creat Clear 33.71 33.71 Estimated GFR 63 73 Glucose 105 100 Calcium 9.0 8.8 Magnesium 2.1 Total Bilirubin 0.4 AST 25 ALT 18 Alkaline Phosphatase 56 Troponin I < 0.01 NT-Pro-B Natriuret Pep 565 H Total Protein 7.0 Albumin 4.2 TSH 1.830 SARS-CoV-2 (PCR) Negative SARS-CoV-2 Influenza Type A (PCR) Negative PCR FLU A Influenza Type B (PCR) Negative PCR FLU B RSV (PCR) Negative PCR RSV
--- NOTE | 2024-10-21 13:01 | P.DS_ITS ---
DS: Providers Provider Date Seen: 10/22/24 Date of admission: 10/20/24 19:36 Primary care physician: Not a Local Provider Admitting Clinician: Katlyn Epps MD Consults: 10/20/24 21:00 Consult to Occupational Therapy [CONS] Routine Comment: Reason(s) for OT Consult:: Evaluate and Treat Any Restrictions?:: No Restrictions Consult to Physical Therapy [CONS] Routine Comment: Reason(s) for PT Consult:: Evaluate and Treat Any Restrictions?:: No Restrictions Consult to Surgical Instrument Maker [CONS] Routine Comment: Reason for Consult:: Social Service Consult Attending Physician on discharge: SHIVAM Barone, LORENZA [facility] Date of Discharge: 10/22/24 DS: Diagnosis Discharge Diagnosis (1) Atrial fibrillation with rapid ventricular response: Status: Acute Problem details: Newly noted on EKG 10/20. RVR is fairly mild with HR 100-110. Previous EKG September 2022 shows NSR Potentially driving decompensated CHF, but unclear if she is truly decompensated. Difficult exam. No pulmonary edema. Goal HR less than 110 at rest -continue Eliquis -Increase [employer] metoprolol succinate from 50 mg PO to 100 mg PO - tolerating -Echocardiogram as below Continue metoprolol 100 mg daily, Eliquis 5 mg b.i.d.. Outpatient follow-up with PCP for ongoing management. (2) CHF (congestive heart failure): Status: Acute Problem details: No recent outpatient weights to compare, no echo available. Unclear if she is actually decompensated. Recommend obtaining outside records in am. Complains of leg edema, but has chronic poorly controlled lymphedema. No pulmonary edema. -Hold am lasix given CT PE study done in ER, watch renal function and resume as able -Monitor daily weights -Echo as above -Recommend ANUJ wraps to bilateral LE 10/21 in reviewing EMR, she does carry a diagnosis of heart failure however there is no delineation nor previous echocardiogram to determine type of heart failure. I do not see a recent cardiology consult note. No previous BNP. Weight November 2023 was 135.3 kg. Current weight is 126 kg. Echocardiogram 10/21/2024: Final Impressions: 1. Normal left ventricular size, normal wall thickness, normal global systolic function, calculated EF of 63 %. 2. Right ventricular cavity size is mildly enlarged, global systolic RV function is mildly reduced. 3. Mildly enlarged left atrium. 4. The aortic valve is normal, trileaflet and calcified, no stenosis and mild regurgitation. 5. Tricuspid valve is normal, moderate tricuspid regurgitation. 6. The inferior vena cava is dilated, respiratory size variation greater than 50%. 7. Mildly increased estimated pulmonary pressures by tricuspid regurgitation velocity and right atrial pressure (42 mmHg plus RAP). Outpatient follow-up with Cardiology (3) Lung nodule: Status: Acute Problem details: Noted on CT PE study 10/20 Recent pneumonia treated with antibiotics outpatient. CT obtained to try to differentiate if there was pulmonary edema vs consolidative process from abnormal CXR. Unclear relevance at this time, but cannot rule out malignancy. Current presentation is not consistent with pneumonia, but would expect residual findings on imaging if she had pneumonia just 2 weeks ago. -Recommend follow up with PCP with referral to pulmonology (4) Lymphedema: Status: Acute Problem details: Chronic. Patient has compression wraps OT lymphedema consult completed - continue outpatient therapy Continue with lymphedema wraps bilateral lower extremities. Outpatient lymphedema therapy is recommended. (5) VASU (obstructive sleep apnea): Status: Acute Problem details: Chronic. Patient intolerant to her CPAP mask (blisters/reaction on nose) so she does not use it. Outpatient follow-up for evaluation for new mask. (6) COPD (chronic obstructive pulmonary disease): Status: Acute Problem details: No acute exacerbation Continue home medications (7) Hypertension: Status: Acute Problem details: Reasonably well controlled. Suspect she will tolerate higher dose of metoprolol for a fib (8) OAB (overactive bladder): Status: Acute Problem details: Chronic (9) Hypothyroidism: Status: Acute Problem details: TSH checked for new a fib and within normal limit. -Continue [employer] levothyroxine DS: Summary Hospital Course Hospital Course: Course of care and details as noted above. Patient found to have new onset atrial fibrillation. Rate has improved. Continue increased dose of oral metoprolol as well as Eliquis b.i.d.. Recommend outpatient follow-up with Cardiology. Continue with outpatient lymphedema therapies. Other outpatient follow-up recommendations as above. Remainder of chronic medical comorbidities were monitored and managed with home medications. Status at Discharge Functional status at discharge: uses cane/walker Overall status at discharge: patient is back to baseline Time Spent with Patient Time attestation: Total time spent providing and/or coordinating discharge services: Time spent: Greater than 30 minutes Exam Narrative: Exam Narrative: PHYSICAL EXAM General: Pleasant, conversant, NAD Cardiovascular: IRRR Pulmonary: No dyspnea Neurological: Alert, answering questions appropriately Skin: Warm, dry. Const: Vital Signs, click to edit/add: Vital Signs - 24 hr 10/20/24 16:39 10/20/24 16:45 10/20/24 17:00 Temperature 97.2 F L Pulse Rate 112 H 104 H Pulse Rate [Pulse Oximeter] 104 H Pulse Rate [Right Pulse Oximeter] Respiratory Rate Blood Pressure [Le ft Arm] Blood Pressure [Ri ght Upper Arm] 134/84 Pulse Oximetry 94 93 [facility] 10/20/24 17:15 10/20/24 17:31 10/20/24 17:45 Temperature Pulse Rate 107 H 105 H Pulse Rate [Pulse Oximeter] Pulse Rate [Right Pulse Oximeter] Respiratory Rate 26 H Blood Pressure [Le ft Arm] Blood Pressure [Ri ght Upper Arm] Pulse Oximetry 95 92 [facility] 10/20/24 18:00 10/20/24 18:15 10/20/24 18:30 Temperature Pulse Rate 109 H Pulse Rate [Pulse Oximeter] Pulse Rate [Right Pulse Oximeter] Respiratory Rate 17 12 16 Blood Pressure [Le ft Arm] Blood Pressure [Ri ght Upper Arm] Pulse Oximetry 90 [facility] 10/20/24 18:45 10/20/24 19:00 10/20/24 19:15 Temperature Pulse Rate Pulse Rate [Pulse Oximeter] Pulse Rate [Right Pulse Oximeter] Respiratory Rate 21 21 24 Blood Pressure [Le ft Arm] Blood Pressure [Ri ght Upper Arm] Pulse Oximetry [facility] 10/20/24 19:22 10/20/24 19:23 10/20/24 20:05 Temperature 97.6 F Pulse Rate Pulse Rate [Pulse Oximeter] 109 H Pulse Rate [Right Pulse Oximeter] 101 H Respiratory Rate 18 18 Blood Pressure [Le ft Arm] 138/88 Blood Pressure [Ri ght Upper Arm] 140/80 H Pulse Oximetry 91 93 [facility] 10/20/24 20:28 10/20/24 21:00 10/20/24 21:30 Temperature Pulse Rate 111 H Pulse Rate [Pulse Oximeter] Pulse Rate [Right Pulse Oximeter] Respiratory Rate 18 18 Blood Pressure [Le ft Arm] Blood Pressure [Ri ght Upper Arm] Pulse Oximetry 93 93 Oxygen Delivery [facility] Room Air Room Air 10/20/24 22:31 10/20/24 22:31 10/21/24 03:00 Temperature 97.4 F L 97.4 F L Pulse Rate Pulse Rate [Pulse Oximeter] Pulse Rate [Right Pulse Oximeter] 97 97 90 Respiratory Rate 18 18 18 Blood Pressure [Le ft Arm] 131/86 140/95 H Blood Pressure [Ri ght Upper Arm] Pulse Oximetry 93 92 Oxygen Delivery [facility] Room Air Room Air 10/21/24 08:00 Temperature Pulse Rate Pulse Rate [Pulse Oximeter] Pulse Rate [Right Pulse Oximeter] 102 H Respiratory Rate 18 Blood Pressure [Le ft Arm] 132/78 Blood Pressure [Ri ght Upper Arm] Pulse Oximetry 92 Oxygen Delivery [facility] Room Air DS: Data Data Completed and Pending Labs on day of discharge: Labs from last 24 hours 10/21/24 10/20/24 10/20/24 06:05 19:10 17:40 WBC 6.58 6.36 RBC 4.68 4.67 Hgb 13.9 13.8 Hct 43.5 44.0 MCV 93 94 MCH 30 30 MCHC 32 31 L RDW Coeff of Yakelin 13.1 13.2 Plt Count 186 210 Neut % (Auto) 73.7 H 70.2 Lymph % (Auto) 16.3 L 18.1 L Richardson % (Auto) 6.1 8.2 Eos % (Auto) 3.2 2.5 Baso % (Auto) 0.5 0.8 Neut # (Auto) 4.80 4.47 Lymph # (Auto) 1.10 1.20 Richardson # (Auto) 0.40 0.50 Eos # (Auto) 0.21 0.16 Baso # (Auto) 0.03 0.05 Abs Immat Gran (auto) 0.01 0.01 Imm/Tot Granulo (auto) 0.2 0.2 Sodium 140 141 Potassium 3.9 4.5 Chloride 103 101 Carbon Dioxide 32 35 H Anion Gap 5 L 5 L BUN 20 24 Creatinine 0.8 0.9 Estimated Creat Clear 33.71 33.71 Estimated GFR 73 63 Glucose 100 105 Calcium 8.8 9.0 Magnesium 2.1 Total Bilirubin 0.4 AST 25 ALT 18 Alkaline Phosphatase 56 Troponin I < 0.01 NT-Pro-B Natriuret Pep 565 H Total Protein 7.0 Albumin 4.2 TSH 1.830 SARS-CoV-2 (PCR) Negative SARS-CoV-2 Influenza Type A (PCR) Negative PCR FLU A Influenza Type B (PCR) Negative PCR FLU B RSV (PCR) Negative PCR RSV Imaging CTA chest: Attestation: I have reviewed the pertinent imaging results. Radiologist's impression: Heart and vasculature: Contrast opacification of the pulmonary arterial tree is adequate. No sign of pulmonary embolism. Heart size is normal. The thoracic aorta is normal in caliber. Top-normal main pulmonary artery caliber measuring 3.4 cm. Small pericardial effusion. Moderate to severe coronary artery calcifications Lungs and pleura: Increased subpleural ground-glass nodule in the posterolateral right upper lobe measuring 2.3 cm, previously 2 cm. New anterior left upper lobe and lingular consolidative opacity versus atelectasis. Linear bibasal opacities likely reflect atelectasis/scarring. No pleural effusion or pneumothorax. Lymph nodes/mediastinum: Enlarged subcarinal lymph node measuring 1.3 cm. Thyroid: Heterogeneous left thyroid, without discrete nodule. Chest wall: No masses. Upper abdomen: Similar large hiatal hernia with intrathoracic location of nearly the entire stomach. Bones: Bilateral glenohumeral joint degenerative change. Multilevel degenerative change of the imaged spine. IMPRESSION: 1. No acute pulmonary embolism. 2. Increased right upper lobe ground-glass nodule may reflect worsening focus of infection/inflammation, including atypical etiologies, however malignancy is a concern. Consider further evaluation with PET-CT. 3. Left upper lobe and lingular consolidative opacities are indeterminate for additional infectious/inflammatory process versus atelectasis. 4. Similar large hiatal hernia with intrathoracic location of nearly the entire stomach. 5. Small pericardial effusion. 6. Enlarged subcarinal lymph node is nonspecific. Chest x-ray: Attestation: I have reviewed the pertinent imaging results. Radiologist's impression: FINDINGS: The sensitivity and specificity of the exam are severely limited by the patient`s body habitus. Mediastinum: The mediastinum is normal in appearance. Moderate to severe cardiomegaly is noted. Lung: Small lung volumes are present with mild pulmonary vascular congestion patchy consolidation seen in the left lung base. A small focus of ill-defined airspace opacities are present in the right lateral upper lung zone. No sign of pleural effusion seen. No pneumothorax is identified. Bone and Soft tissue: Unremarkable for age. IMPRESSIONS: 1. Small lung volumes are present with mild pulmonary vascular congestion patchy consolidation seen in the left lung base. A small focus of ill-defined airspace opacities are present in the right lateral upper lung zone. These findings can be seen with atelectasis and/or pneumonia. 2. Moderate to severe cardiomegaly is noted. Discharge Plan Discharge Disposition: [facility] Discharge Location: [facility] Date of Admission: 10/20/24 19:36 Attending Provider on Discharge: Jo-Ann An Primary Care Provider: Provider,Not a Local Condition: Stable Anticipated Discharge Date/Time: 10/22/24 12:57 Discharge Medications: New metoprolol succinate 50 mg Tablet Extended Release 24 Hr 100 mg PO DAILY Qty: 60 0RF Eliquis 5 mg Tablet 5 mg PO BID Qty: 60 0RF Continued calcium carbonate [Oyster Shell Calcium 500] 500 mg calcium (1,250 mg) tablet 1,000 mg PO DAILY@1200 calcium carbonate [Calcium Antacid] 200 mg calcium (500 mg) tablet,chewable 1,000 mg PO BID PRN budesonide-formoterol 160-4.5 mcg/actuation HFA aerosol inhaler 1 puff inhalation BID furosemide 40 mg tablet 40 mg PO DAILY ipratropium-albuterol 0.5 mg-3 mg(2.5 mg base)/3 mL solution for nebulization 3 ml INHALATION TID levothyroxine 75 mcg tablet 75 mcg PO QAM ferrous sulfate [FeroSul] 325 mg (65 mg iron) tablet 325 mg PO BID omeprazole 20 mg capsule,delayed release(DR/EC) 20 mg PO DAILY rosuvastatin 10 mg tablet 10 mg PO HS lutein 20 mg capsule 20 mg PO QPM cholecalciferol (vitamin D3) [Vitamin D3] 50 mcg (2,000 unit) capsule 50 mcg PO DAILY Centrum Silver Women 8 mg iron-400 mcg-50 mcg tablet 1 tab PO DAILY mirabegron 50 mg tablet extended release 24 hr 50 mg PO DAILY acetaminophen 500 mg tablet 500 mg PO BID guaifenesin [Mucus Relief ER] 600 mg tablet extended release 12hr 600 mg PO BID ketoconazole 2 % shampoo 1 applic topical 2XW Patient Comments: SUN, melatonin 3 mg tablet 3 mg PO HS PRN Discontinued metoprolol succinate 50 mg tablet extended release 24 hr 50 mg PO DAILY Discharge Orders: Discharge Order (Routine); Ordered 10/21/24 Ordered By: Katlyn Epps Activity Level: Activity as Tolerated Discharge Diet: Regular Follow Up Appointments: Provider,Not a Local [Primary Care Provider, Family Practice] Referral Note: Follow up with PCP 3-7 days Forms: [facility] Info Instructions Admit to: Assisted Living Can use facility standing orders?: Yes Code Status: Full Code TEDs: Bilateral Knee Oxygen: No Urinary Catheter: No Signature: SHIVAM Barone, PA-C [facility]
[2024-10-21 15:00] VITALS: BP 145/107; PULSE 89; PULSE 90; RESP 18; TEMP 36.6; O2SAT 91
--- NOTE | 2024-10-21 15:46 | PC.SOCIAL ---
Discharge planning: GABRIELLE met with patient who states that she is in assisted living at [facility] and receives medication admin, shower assistance, and support with someone doing her laundry. Patient reports that her granddaughter will bring her home when she is ready. GABRIELLE called the RN line at [facility] and left a voicemail requesting a call back. GABRIELLE called the RN line again and spoke with SAULO Corcoran who states that she would need to do an assessment with patient upon return due to her her hospital stay and new medications. Jewell reports that patient would need to be back to the facility today by 1400 for her to complete the assessment or Jewell arrives at work at 730 AM and could do it then. GABRIELLE states she will update Jewell. SW called Jewell and updated that the Echo won't be done until later afternoon so patient would not make it back by 1400. SW met with patient to discuss transportation for the morning. Patient states that all of her family works in the morning and her plan was for her granddaughter to pick her up at 6:00 PM tonight. SW explained what SAULO Corcoran had told SW about returning. Patient called her son who states that she won't be able to pick her up. Patient didn't call her other granddaughter listed as she wouldn't hear the end of it and she also works. Patient's granddaughter who could pick her up tonight works from 5-5. SW and patient attempted to call Jewell to see if there is a way patient could return tonight and do an assessment in the morning as long as her medications don't need to be administered prior to the time Jewell arrives. Jewell did not answer the call. SW encouraged patient to call the other family members to see if they can pick her up and to inform her nurse if someone can so all discharge paperwork can be ready for her in the morning.
--- NOTE | 2024-10-21 16:32 | PC.SOCIAL ---
Discharge planning: Pt would like to return to her apartment at [facility]. She has a grand daughter to pick her up [facility] and no ride home tomorrow morning. She wants to be home before 10:30 tomorrow morning. Called [facility] Nurse, Jewell, who provided a phone number to call prior to discharge [phone] and requested discharge orders be faxed to [phone] and prescriptions be sent to [facility] ([phone]). If this is all done, prior to discharge, pt can return with the expectation that she will be seen by nursing in the morning prior to medications being due tomorrow.
--- NOTE | 2024-10-21 16:35 | PC.NURSE ---
Prescriptions for Metoprolol and Eliquis were cancelled at [facility] and called in to [facility].
[2024-10-21] MEDS: ROSUVASTATIN CALCIUM 10 MG TABLET PO (17:19)
[2024-10-21 20:00] VITALS: BP 129/80; PULSE 90; RESP 18; TEMP 36.4; O2SAT 92
--- NOTE | 2024-10-21 20:57 | PC.NURSE ---
Removed IV x2. Held pressure for 5 minutes and lightly wrapped with coban. Informed patient and [facility] that coban should be removed upon arrival to [place], verbalized understanding. Patient was offered hs neb but stated she could do it at her apartment if needed and did not wish to have in hospital. Taken to [facility]'s car via w/c. Understands discharge instructions.
== END 2024-10-21 20:32 ==
LOC: ED 19:09 → MEDSURG 19:36
PROVIDERS: Admitting Provider Family Medicine; Emergency Provider Family Medicine; Visit Provider Family Medicine
DX: I48.91 Unspecified atrial fibrillation (principal); I89.0 Lymphedema, not elsewhere classified; Z79.82 Long term (current) use of aspirin; R91.1 Solitary pulmonary nodule; J44.9 Chronic obstructive pulmonary disease, unspecified; G47.33 Obstructive sleep apnea (adult) (pediatric); N32.81 Overactive bladder; I11.0 Hypertensive heart disease with heart failure; I50.9 Heart failure, unspecified; E03.9 Hypothyroidism, unspecified; E78.5 Hyperlipidemia, unspecified
CPT/HCPCS: 36415; 71045; 71275; 80048; 80053; 83735; 83880; 84443; 84484; 85025; 87081; 87631; 93005; 93306; 94761; 97161; 97165; 97530; 97535; 99284; 99285; A9153; A9270; G0378; Q9967